=== PATIENT | female | born 1990 | race Caucasian/White ===

== ENCOUNTER 2020-03-31 15:18 | Outpatient (REF) | payer OTHER, SELFPAY | END 2020-03-31 15:19 | disposition home or self-care (01) | LOC: HO.LAB 15:18 | PROVIDERS: Visit Provider Internal Medicine | DX: Z13.89 Encounter for screening for other disorder (principal) ==

== ENCOUNTER 2020-04-13 08:48 | Outpatient (REF) | payer OTHER, SELFPAY ==
--- NOTE | 2020-04-13 09:00 | EMG_ITS ---
FINDINGS: Right median and ulnar motor studies were performed. Right radial sensory studies were performed, and paraspinal muscles were tested. IMPRESSION: [id number]-[id number] right median neuropathy across carpal tunnel. MD JACOB Lehman/NEAL / [phone]
--- NOTE | 2020-04-13 09:32 | XR_ITS ---
EXAMINATION: XR WRIST, RIGHT CLINICAL INFORMATION: Right wrist pain. Assess for arthritis. COMPARISON: Radiographs right wrist 02/16/2019. TECHNIQUE: The right wrist is imaged in 4 views. FINDINGS: There is no fracture, dislocation, destructive process. The ulnar variance is neutral. There is no joint narrowing or erosive change or chondrocalcinosis. The pronator quadratus fat pad appears normal. XR/XR wrist RT 2V IMPRESSION: Normal study.
== END 2020-04-13 08:49 | disposition home or self-care (01) ==
LOC: HO.NEURO 08:48
PROVIDERS: PCP Internal Medicine; Visit Provider Internal Medicine
DX: M25.531 Pain in right wrist (principal)
CPT/HCPCS: 73100; 95860; 95886; 95909

== ENCOUNTER 2020-05-30 15:27 | Outpatient (REF) | payer OTHER, SELFPAY ==
[2020-05-30 16:35] LABS: COVID-19 Test Negative (Negative)
== END 2020-05-30 15:28 | disposition home or self-care (01) ==
LOC: HO.EMPCOV 15:27
PROVIDERS: Visit Provider Internal Medicine
DX: Z20.828 Contact with and (suspected) exposure to other viral communicable diseases (principal)
CPT/HCPCS: 87635; C9803

== ENCOUNTER 2021-06-20 10:04 | Outpatient (REF) | payer OTHER, SELFPAY ==
[2021-06-20 14:03] LABS: CT PCR NOT DETECTED (Not Detect.); NG PCR NOT DETECTED (Not Detect.)
[2021-06-21 09:12] LABS: BV Int Neg Control Negative (Negative); BV Int Pos Control Positive (Positive)
[2021-06-23 16:31] LABS: HPV mRNA E6/E7 rflx Not Detected (Not Detected)
== END 2021-06-20 10:05 | disposition home or self-care (01) ==
LOC: HO.LAB 10:04
PROVIDERS: PCP Internal Medicine; Visit Provider Advanced Practice Midwife
DX: Z01.419 Encounter for gynecological examination (general) (routine) without abnormal findings (principal); N92.6 Irregular menstruation, unspecified; E66.01 Morbid (severe) obesity due to excess calories; Z68.43 Body mass index [BMI] 50.0-59.9, adult; Z87.42 Personal history of other diseases of the female genital tract; Z20.2 Contact with and (suspected) exposure to infections with a predominantly sexual mode of transmission
CPT/HCPCS: 87480; 87491; 87510; 87591; 87624; 87660; 88142

== ENCOUNTER → 2022-03-28 13:16 | Outpatient (RCR) | payer OTHER, SELFPAY ==
[2020-06-21 09:50] LABS: SARS-COV-2 PCR UMBRL NOT DETECTED
[2020-06-25 09:51] LABS: SARS-COV-2 PCR UMBRL NEGATIVE
[2020-06-30 11:07] LABS: SARS-COV-2 PCR UMBRL NEGATIVE
== END | disposition home or self-care (01) ==
LOC: HO.EMPCOV 06-14 14:26
PROVIDERS: Visit Provider Internal Medicine
DX: Z20.828 Contact with and (suspected) exposure to other viral communicable diseases (principal)
CPT/HCPCS: 36415; C9803; U0003

== ENCOUNTER 2022-06-28 10:08 | Outpatient (REF) | payer OTHER, SELFPAY ==
[2022-06-29 09:37] LABS: ~Hepatitis B Surface Antibody NONREACTIVE (Nonreactive)
[2022-06-30 23:05] LABS: TS Negative Control Passed; TS Panel A 2; TS Panel B 0; TS Positive Control Passed; TSpotTB Negative (Negative)
[2022-07-01 19:09] LABS: Rubella IgG Antibody 1.99 Index
[2022-07-02 00:03] LABS: Mumps Virus IgG Antibody 9.22 AU/mL
[2022-07-02 18:28] LABS: Varicella IgG Antibody <135.00 index
== END 2022-06-28 10:09 | disposition home or self-care (01) ==
LOC: HO.LAB 10:08
PROVIDERS: PCP Internal Medicine; Visit Provider Internal Medicine
DX: Z01.84 Encounter for antibody response examination (principal); Z11.1 Encounter for screening for respiratory tuberculosis
CPT/HCPCS: 36415; 86481; 86706; 86735; 86762; 86765; 86787

== ENCOUNTER 2022-07-26 09:00 | Outpatient (REF) | payer OTHER, SELFPAY ==
[2022-07-26 09:18] LABS: MANUAL DIFF FLAG NO
[2022-07-26 09:31] LABS: Basophils Absolute Auto 0.1 X10*3/uL (0.0-0.2); Basophils Percent Auto 0.7 % (0-2); Eosinophils Absolute Auto 0.4 X10*3/uL (0.0-0.4); Eosinophils Percent Auto 5.5 % (0-4); Hematocrit 40.7 % (37.0-47.0); Hemoglobin 13.5 g/dl (12.0-16.0); Imm Gran Abs Auto 0.02 X10*3/uL (0.00-0.03); Imm Gran Pct Auto 0.3 % (0.0-0.4); Lymphocytes Absolute Auto 2.3 X10*3/uL (1.2-4.9); Lymphocytes Percent Auto 31.9 % (20-40); Mean Corpuscular HGB Conc 33.2 g/dl (31.0-35.0); Mean Corpuscular Hemoglobin 28.7 pg (27.0-33.0); Mean Corpuscular Volume 86.4 fL (80.0-98.0); Mean Platelet Volume 9.7 fL (9.4-12.3); Monocytes Absolute Auto 0.4 X10*3/uL (0.1-1.2); Monocytes Percent Auto 5.9 % (2-11); Neutrophils Absolute Auto 4.1 x10*3/uL (2.0-8.3); Neutrophils Percent Auto 55.7 % (45-73); Platelet Count 288 X10*3/uL (160-400); Red Blood Count 4.71 X10*6/uL (4.20-5.50); Red Cell Distribution Width 12.8 % (11.0-16.0); White Blood Count 7.3 X10*3/uL (4.8-10.8)
[2022-07-26 10:32] LABS: Alanine Aminotransferase 32 U/L (0-31); Albumin Level 4.2 g/dL (3.5-5.0); Alkaline Phosphatase 54 U/L (39-117); Anion Gap 12 (12-20); Aspartate Amino Transferase 26 U/L (5-31); Blood Urea Nitrogen 11 mg/dL (9-16); Calcium 9.4 mg/dL (8.4-10.2); Carbon Dioxide 25 mmol/L (22-29); Chloride 107 mmol/L (96-108); Cholesterol 189 mg/dL; Estimated Glomerular Filt Rate > 60; Glucose Random 79 mg/dL (60-115); Sodium 139 mmol/L (135-145); Total Protein 6.8 g/dL (6.5-8.0)
[2022-07-26 10:52] LABS: Thyroid Stimulating Hormone 1.71 uIU/mL (0.32-4.0)
== END 2022-07-26 09:01 | disposition home or self-care (01) ==
LOC: HO.LAB 09:00
PROVIDERS: PCP Internal Medicine; Visit Provider Internal Medicine
DX: Z00.00 Encounter for general adult medical examination without abnormal findings (principal)
CPT/HCPCS: 36415; 80053; 82465; 84443; 85025

== ENCOUNTER 2022-10-15 14:12 | Outpatient (REF) | payer OTHER, SELFPAY ==
[2022-10-16 06:42] LABS: CT PCR NOT DETECTED (Not Detect.); NG PCR NOT DETECTED (Not Detect.)
[2022-10-16 12:36] LABS: BV Int Neg Control Negative (Negative); BV Int Pos Control Positive (Positive)
[2022-10-18 04:18] LABS: HPV mRNA E6/E7 rflx Not Detected (Not Detected)
== END 2022-10-15 14:13 | disposition home or self-care (01) ==
LOC: HO.LNP 14:12
PROVIDERS: PCP Internal Medicine; Visit Provider Advanced Practice Midwife
DX: Z01.419 Encounter for gynecological examination (general) (routine) without abnormal findings (principal); Z11.51 Encounter for screening for human papillomavirus (HPV); E66.01 Morbid (severe) obesity due to excess calories; Z87.42 Personal history of other diseases of the female genital tract
CPT/HCPCS: 0353U; 87480; 87510; 87624; 87660; 88142

== ENCOUNTER 2023-04-14 08:51 | Outpatient (AMB) | payer OTHER, SELFPAY ==
[2023-04-14 09:39] VITALS: BP 122/80; PULSE 83; TEMP 36.8; O2SAT 97; BMI 50.0
--- NOTE | 2023-04-14 09:39 | MHC.OFFWIV ---
Intake Vital Signs 04/14/23 09:39 Height 5 ft 3 in Weight 128.026 kg BMI 50.0 BP 122/80 Blood Pressure Location Rt brachial Position Sitting Pulse 83 Pulse Source Pulse Oximeter Temp 98.2 F Temp Source Temporal Artery Scan Pulse Oximetry (%) 97 Oxygen Delivery Method Room Air Intake Visit Reasons: EP, sore throat, fever ([phone]) Intake Note: pt is here for c/o sore throat and fever on and off Patient Tobacco Use Status: Never used Tobacco Allergies No Known Allergies [No Known Allergies*] Allergy (Verified 04/14/23 09:39) Do you need a note to return to daycare/school/sports/work: Yes HPI EP, sore throat, fever ([phone]) HPI Details Patient presents with 3 days of sore throat, mild conjunctivitis with watery eyes mild nasal congestion and chills. She reports evening she has chills and then wakes up sweating. No measured fevers. Notes children at Home are developing similar symptoms. Denies headache, body aches, GI symptoms, cough. [facility] Medical History (Updated 10/22/22 @ 10:33 by Alee Huynh CNM) Gall bladder disease Surgical History (Updated 10/15/22 @ 14:35 by JEFFY Estrada) Hx of cholecystectomy Family History Maternal Grandfather Cancer Social History Alcohol intake: never Patient Tobacco Use Status: Never used Tobacco Gender identity: Female Female Reproductive History Menstrual Age of Menarche: 11 Review of Systems Const Reports as per HPI and Reports no additional complaints Eyes Reports no additional complaints ENT Reports no additional complaints and Reports as per HPI Card Reports as per HPI and Reports no additional complaints Resp Reports as per HPI and Reports no additional complaints GI Reports as per HPI and Reports no additional complaints Musc Reports no additional complaints and Reports as per HPI Neuro Reports no additional complaints and Reports as per HPI Physical Exam Vital Signs: Last Vital Signs Temp 98.2 F 04/14/23 09:39 Pulse 83 04/14/23 09:39 BP 122/80 04/14/23 09:39 Pulse Ox 97 04/14/23 09:39 Oxygen Delivery Method Room Air 04/14/23 09:39 BMI result Body Mass Index 50.0 Const General: cooperative, comfortable and no acute distress Orientation/consciousness: patient oriented x3 HEENT Ears: TM's normal bilaterally General nose exam: Normal external nose present and Normal nasal mucous membranes and turbinates present Face and sinus: Yes normal facial exam and Yes sinuses nontender Mouth: Normal oral and palatal mucosa present Throat: Yes uvula midline and Yes posterior oropharynx abnormal (Tonsils are hypertrophic without rubor or abscess or exudate) Neck Neck: Yes full ROM and Yes no lymphadenopathy Resp Effort & Inspection: normal respiratory effort Auscultation: clear to auscultation bilaterally Cardio Rate: regular rate Rhythm: regular rhythm Heart sounds: S1 normal heart sound present and S2 normal heart sound present Neuro General: patient oriented x3 Results AMB Rapid Strep AMB Rapid Strep Negative Last Edit by Byron Hernandez CMA on 04/14/23 09:56 Results Reviewed Results Reviewed: Rapid strep negative Assessment & Plan Assessment & Plan (1) Pharyngitis: Code(s): J02.9 - Acute pharyngitis, unspecified Qualifiers: Pharyngitis/tonsillitis etiology: unspecified etiology Qualified Code(s): J02.9 - Acute pharyngitis, unspecified Plan: Advised patient on self-care for symptoms. Review viral swab collected today will report results as available. Return to clinic if symptoms do not improve over the next 5-7 days. Orders: Orders SARS-CoV2/FLU/RSV Today J02.9 - Acute pharyngitis, unspecified AMB Rapid Strep Screen Today Z13.9 - Encounter for screening, unspecified Coding Level of Care Code Est Pt Level 3 (28421) Diagnoses Pharyngitis, unspecified etiology J02.9 Pharyngitis/tonsillitis etiology: unspecified etiology
== END 2023-04-14 10:05 | disposition home or self-care (01) ==
PROVIDERS: PCP Internal Medicine; Visit Provider Physician Assistant
DX: Z13.9 Encounter for screening, unspecified (principal); J02.9 Acute pharyngitis, unspecified
CPT/HCPCS: 87880; 99213

== ENCOUNTER 2023-04-14 10:12 | Outpatient (REF) | payer OTHER, SELFPAY ==
[2023-04-14 14:58] LABS: Influenza A PCR NEGATIVE (Negative); Influenza B PCR NEGATIVE (Negative); Resp Syncy Virus RNA Qual PCR NEGATIVE (Negative); SARS COV2 PCR INHOUSE NEGATIVE (Negative)
== END 2023-04-14 10:13 | disposition home or self-care (01) ==
LOC: HO.LAB 10:12
PROVIDERS: Visit Provider Physician Assistant
DX: J02.9 Acute pharyngitis, unspecified (principal); Z11.52 Encounter for screening for COVID-19
CPT/HCPCS: 0241U

== ENCOUNTER 2023-04-17 14:23 | Outpatient (REF) | payer OTHER, SELFPAY ==
[2023-04-17 14:50] LABS: IDNOW Serial# 08D9AD1C; Strep A Nucleic Acid Positive (Negative)
== END 2023-04-17 14:24 | disposition home or self-care (01) ==
LOC: HO.LNP 14:23
PROVIDERS: Visit Provider Internal Medicine
DX: J02.9 Acute pharyngitis, unspecified (principal)
CPT/HCPCS: 87070; 87651

== ENCOUNTER 2023-07-29 15:47 | Outpatient (REF) | payer OTHER, SELFPAY ==
--- NOTE | ~2023-07-29 | XR_ITS ---
EXAMINATION: XR HIP, RIGHT CLINICAL INFORMATION: Right hip pain. COMPARISON: None available. TECHNIQUE: 2 views of the right hip. FINDINGS: Surgical clip overlies the pelvis. Right hip joint alignment preserved. Limited visualization due to body habitus. Mild degenerative changes in the right hip. XR/XR hip RT min 2V IMPRESSION: Mild degenerative changes in the right hip. CT scan should be considered for further evaluation if there is clinical concern for fracture or other underlying pathology.
== END 2023-07-29 15:48 | disposition home or self-care (01) ==
LOC: HO.XRAY 15:47
PROVIDERS: Visit Provider Internal Medicine
DX: M25.551 Pain in right hip (principal)
CPT/HCPCS: 73502

== ENCOUNTER 2023-08-13 09:17 | Outpatient (REF) | payer OTHER, SELFPAY ==
[2023-08-13 10:16] LABS: Basophils Percent Auto 0.6 % (0-2); Eosinophils Absolute Auto 0.2 X10*3/uL (0.0-0.4); Eosinophils Percent Auto 3.3 % (0-4); Hematocrit 37.9 % (37.0-47.0); Hemoglobin 12.6 g/dl (12.0-16.0); Imm Gran Abs Auto 0.01 X10*3/uL (0.00-0.03); Imm Gran Pct Auto 0.2 % (0.0-0.4); Lymphocytes Absolute Auto 1.9 X10*3/uL (1.2-4.9); Lymphocytes Percent Auto 34.7 % (20-40); Mean Corpuscular HGB Conc 33.2 g/dl (31.0-35.0); Mean Corpuscular Hemoglobin 28.7 pg (27.0-33.0); Mean Corpuscular Volume 86.3 fL (80.0-98.0); Monocytes Absolute Auto 0.2 X10*3/uL (0.1-1.2); Monocytes Percent Auto 4.5 % (2-11); Neutrophils Absolute Auto 3.1 x10*3/uL (2.0-8.3); Neutrophils Percent Auto 56.7 % (45-73); Red Blood Count 4.39 X10*6/uL (4.20-5.50); Red Cell Distribution Width 12.3 % (11.0-16.0)
[2023-08-13 10:22] LABS: White Blood Count 5.4 X10*3/uL (4.8-10.8)
[2023-08-13 10:58] LABS: Erythrocyte Sedimentation Rate 8 MM/HR (0-20)
[2023-08-13 11:00] LABS: Anion Gap 11 (12-20); Blood Urea Nitrogen 10 mg/dL (9-16); C Reactive Protein 0.19 mg/dL (< or = 0.50); Calcium 9.6 mg/dL (8.4-10.2); Carbon Dioxide 28 mmol/L (22-29); Chloride 105 mmol/L (96-108); Estimated Glomerular Filt Rate > 60; Glucose Random 78 mg/dL (60-115); Potassium 4.6 mmol/L (3.3-5.1); Sodium 139 mmol/L (135-145)
[2023-08-20 17:47] LABS: Anti Nuclear Antibody Screen NEGATIVE (NEGATIVE)
== END 2023-08-13 09:18 | disposition home or self-care (01) ==
LOC: HO.LAB 09:17
PROVIDERS: PCP Internal Medicine; Visit Provider Internal Medicine
DX: M25.50 Pain in unspecified joint (principal); Z82.61 Family history of arthritis
CPT/HCPCS: 36415; 80048; 85025; 85652; 86038; 86140

== ENCOUNTER → 2023-08-26 10:42 | Outpatient (REF) | payer OTHER, SELFPAY | LOC: HO.SL 10:42 | PROVIDERS: PCP Internal Medicine; Visit Provider Internal Medicine | DX: G47.33 Obstructive sleep apnea (adult) (pediatric) (principal) | CPT/HCPCS: 95806 ==

== ENCOUNTER → 2023-08-26 19:00 | Outpatient (BNV) | payer OTHER, SELFPAY | PROVIDERS: PCP Internal Medicine; Visit Provider Internal Medicine | DX: G47.33 Obstructive sleep apnea (adult) (pediatric) (principal) | CPT/HCPCS: 95806 ==

== ENCOUNTER 2023-11-07 10:36 | Outpatient (REF) | payer OTHER, SELFPAY ==
[2023-11-08 10:45] LABS: Bacterial Vaginosis PCR NEGATIVE (Negative); Candida Group PCR DETECTED (Not Detect); Candida glab krusei PCR NOT DETECTED (Not Detect); Trichomonas vaginalis PCR NOT DETECTED (Not Detect)
[2023-11-08 10:55] LABS: CT PCR NOT DETECTED (Not Detect.); NG PCR NOT DETECTED (Not Detect.)
== END 2023-11-07 10:37 | disposition home or self-care (01) ==
LOC: HO.LNP 10:36
PROVIDERS: PCP Internal Medicine; Visit Provider Advanced Practice Midwife
DX: Z01.419 Encounter for gynecological examination (general) (routine) without abnormal findings (principal); Z87.42 Personal history of other diseases of the female genital tract; Z78.9 Other specified health status; Z20.2 Contact with and (suspected) exposure to infections with a predominantly sexual mode of transmission
CPT/HCPCS: 0352U; 0353U; 99395

== ENCOUNTER 2023-11-07 10:36 | Outpatient (AMB) | payer OTHER, SELFPAY ==
[2023-11-07 10:37] VITALS: BP 132/82; BMI 51.4
--- NOTE | 2023-11-07 10:37 | A.OFFVIS_ITS ---
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: No Information Interpreted: non-clinical & clinical Golf Ball Marker: Golf Ball Marker Present (Olaf) Allergies No Known Allergies [No Known Allergies*] Allergy (Verified 11/07/23 10:39) Medication List - Last Reconciled 11/07/23 by Alee Huynh CNM albuterol sulfate 90 mcg/actuation (Ventolin HFA) inhalation fluticasone propionate 50 mcg/actuation 1 spray intranasal BID loratadine 10 mg PO DAILY Is last menstrual period known: Yes Last menstrual period: 11/01/23 Post menopausal: No HPI HPI 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 She is sexually active with her her had a vasectomy so she has not worried about . She has not worried about STDs these either but is open to testing with the pelvic exam. 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 She is working on trying to lose weight herself and not eat late when she gets home. She had considered bariatric surgery but really wants to try to lose the weight on she said she is seen her primary care provider but has not been tested for diabetes or had any fasting blood work and a very long time. [facility] Medical History Gall bladder disease Surgical History (Updated 11/07/23 @ 10:46 by JEFFY Estrada) History of loop electrical excision procedure (LEEP) Hx of cholecystectomy Family History Maternal Grandfather Cancer Social History (Updated 11/07/23 @ 10:41 by JEFFY Estrada) Alcohol intake: never Patient Tobacco Use Status: Never used Tobacco Substance Use Type: Marijuana Gender identity: Female Female Reproductive History Menstrual Age of Menarche: 11 Duration of menses: 3-5 days Date of last menstrual period: 11/01/23 control method: none Total pregnancies: 3 Full term: 2 Number of Living Children: 2 Ab spontaneous: 1 Date of last pap smear: 10/16/22 (negative) History of abnormal pap smear: Yes (2012 2011 CIN3 ) Physical Exam Vital Signs: Last Vital Signs BP 132/82 11/07/23 10:37 BMI result Body Mass Index 51.4 Const General: healthy appearing, comfortable, no acute distress, well developed and alert Nutritional Appearance: average body habitus and obese Orientation/consciousness: patient oriented x3 Limitations: no limitations HEENT Head: Yes normocephalic Neck Neck: Yes normal visual inspection Chest Chest palpation & inspection: normal inspection of the chest Breast/axilla inspection: normal inspection of the breasts and normal inspection of the axillae Breast/axilla palpation: normal palpation of the breasts and normal palpation of the axillae Resp Effort & Inspection: normal respiratory effort GI Inspection: Yes normal to inspection, No Abdominal wall edema and No distended Palpation (GI): Soft to palpation and nontender Other: Speculum exam within normal limits limited view of the cervix secondary to adipose but discharge is completely within normal limits. Cervix irregular status post LEEP tightly closed mobile nontender uterus difficult feel secondary to adipose slightly weak tone with Kegel. coached in Kegel's General: Yes bladder normal to palpation External Female Exam: normal external appearance and normal appearance of the urethra Speculum Exam - Vagina: normal appearance of the vagina, normal palpation and normal vaginal discharge Speculum Exam - Cervix: normal appearance of the cervix, normal palpation and nontender Bimanual exam- vagina & uterus: normal bimanual exam, normal palpation, uterine size normal, bladder normal to palpation, consistency normal, normal palpation, uterine mobility normal, uterine shape normal, No Cervical tenderness present, non-tender and no cervical motion tenderness Bimanual Exam- Adnexa, other: normal adnexae, no masses, normal and No adnexal tenderness Neuro General: patient oriented x3 Results Reviewed Results Reviewed: Name: Yecenia Aviles Age/Sex: 31/F Attending: Alee Huynh CNM : 1990 Submitted by: Alee Huynh CNM Copies to: KARLA RANKIN MD MR #: [id number] Status: DEP REF Collected: 06/20/21 Location: .LAB Received: 06/21/21 Interpretation Satisfactory for evaluation. Negative for intraepithelial lesion or malignancy. HPV mRNA E6/E7: NOT DETECTED This assay detects E6/E7 viral messenger RNA (mRNA) from 14 high-risk HPV types (16, 18, 31, 33, 35, 39, 45, 51, 52, 56, 58, 59, 66, 68) HPV testing performed by [facility], [place], [place]. See reference laboratory portion of the EMR for entire report. Clinical Information LMP: 05/31/21 Previous PAP test: 2016, WNL Other history: 2011, CASS III Material Received ThinPrep- Cervical Copies To KARLA RANKIN MD [address] [place] [address] [id number] Alee Huynh CNM [address] [place], [place] [address]D[place] [address] [address] Electronically Signed By: KRYSTAL Rubio (ASCP) 06/27/21 1704 Name: Yecenia Aviles Age/Sex: 32/F Attending: Alee Huynh CNM : 1990 Submitted by: Alee Huynh CNM Copies to: Jeremy Rankin MD MR #: [id number] Status: DEP REF Collected: 10/15/22 Location: [facility] Received: 10/16/22 Interpretation Satisfactory for evaluation. Negative for intraepithelial lesion or malignancy. HPV mRNA E6/E7: NOT DETECTED This assay detects E6/E7 viral messenger RNA (mRNA) from 14 high-risk HPV types (16, 18, 31, 33, 35, 39, 45, 51, 52, 56, 58, 59, 66, 68) HPV testing performed by [facility], [place], [place]. See reference laboratory portion of the EMR for entire report. Clinical Information LMP: 09/30/22 Previous PAP test: 06/21/21, WNL Material Received ThinPrep-Cervical Copies To Jeremy Rankin MD [address] [place] [address], [address] [place] [address] Electronically Signed By: Uzma Lima 10/21/22 1241 The Pap Test is a screening procedure with the inherent possibility of both false negative and false positive results. Results should be interpreted in the context of historic and current clinical findings. Reliability of the Pap Test is enhanced by performing the test on a regular repetitive basis. Patient: Yecenia Aviles Age/Sex: 32/F MR#: [id number] Page 1 of 1 Assessment & Plan Assessment & Plan (1) Obesity, morbid, BMI 50 or higher: Code(s): E66.01 - Morbid (severe) obesity due to excess calories Category: Medical (2) Hx of abnormal cervical Pap smear: Comment: 06/20/21- pap neg, neg HPV; 10/15/2022 Pap is negative with negative HPV. Code(s): Z87.42 - Personal history of other diseases of the female genital tract Category: Medical (3) Well woman exam with routine gynecological exam: Code(s): Z01.419 - Encounter for gynecological examination (general) (routine) without abnormal findings Category: Medical (4) Relies on partner's vasectomy for primary method of contraception: Code(s): Z78.9 - Other specified health status Category: Social Hx Plan -----Discussed in this visit the following: healthy balanced diet, regular and consistent exercise, getting recommended health screens, doing the best she can for her particular health concerns, kegel exercises, pap smear screening and followup recommendations, mammography screening and SBE, normal changes in cycles in her life stage--- . Reviewed that since the last 3 paps have been negative she would not be due for another Pap until at least 3 years from the last 1 and otherwise it would be 5 years but 3 years would be acceptable because of her history of the abnormal Paps in the past and a LEEP. I urged her to re contact her primary care provider and see if any fasting lab work is in order to screen for diabetes because she definitely would be at risk because of her obesity. 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 Discussed exercise and movement as well she had been having pain in her hips and was told that she might have the beginnings some arthritis discussed movement is been helpful as well and weight loss. RTC 1 year for annual her next Pap would be due in 2 years. Coding Level of Care Code Est Pt Prev Care 18-39y(41135) Diagnoses Obesity, morbid, BMI 50 or higher E66.01 Hx of abnormal cervical Pap smear Z87.42 Well woman exam with routine gynecological exam Z01.419 Relies on partner's vasectomy for primary method of contraception Z78.9
== END 2023-11-07 11:19 | disposition home or self-care (01) ==
LOC: HO.HWSM 10:36
PROVIDERS: PCP Internal Medicine; Visit Provider Advanced Practice Midwife
DX: Z01.419 Encounter for gynecological examination (general) (routine) without abnormal findings (principal); E66.01 Morbid (severe) obesity due to excess calories
CPT/HCPCS: 99395

== ENCOUNTER 2024-04-19 15:00 | Outpatient (AMB) | payer OTHER, SELFPAY ==
[2024-04-19 15:02] VITALS: BP 128/80; O2SAT 99
--- NOTE | 2024-04-19 15:02 | A.OFFVIS_ITS ---
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 The patient is a 34 year woman with known history of severe asthma. Apparently she has had asthma all throughout her life. Her son also has asthma. She also has significant al lergies. She did go to an machine gunner and she was found to have significant allergies. She was offered allergy shots but it was hard for her to accommodate specially with work. Therefore it was left at that. She does have a rescue inhaler. However, she is using the rescue inhaler 2 to 3 times a day. She was has a hard time. She is also using allergy medication. The patient also has chronic rhinitis but no evidence of any nasal polyps. And she does not significant eczema. She has never been hospitalized that she is aware of. Will go ahead and start on maintenance therapy. The patient may benefit from biologic therapy. Will request additional blood work if she is not better on the respiratory regimen with that will be provided. She will need pulmonary function studies. She had PFTs back in 2020 that I personally reviewed with her. She had evidence of small airways disease and a significant response to bronchodilators consistent with asthma. The patient also has daytime maki wsiness. Her [place] score is elevated 05/02. The patient did have a sleep study back in 08/27/2023 demonstrating [id number] sleep apnea with hypoxia. The patient needs to start CPAP at this time. [facility] Medical History (Updated 04/19/24 @ 22:53 by Percy Valdez MD) MICHOACANO (obstructive sleep apnea) Asthma Gall bladder disease Surgical History (Updated 11/07/23 @ 10:46 by JEFFY Estrada) History of loop electrical excision procedure (LEEP) Hx of cholecystectomy Family History Maternal Grandfather Cancer Social History (Updated 04/19/24 @ 15:08 by Jayshree Mendoza LPN) Alcohol intake: never Patient Tobacco Use Status: Never used Tobacco Substance Use Type: Marijuana Gender identity: Female Female Reproductive History Menstrual Age of Menarche: 11 Review of Systems Const Denies fever(s) ENT Reports nasal congestion and Reports nasal discharge Card Denies chest pain Resp Reports cough and Reports wheezing GI Reports no additional complaints Musc Reports no additional complaints Skin/Breast Denies rash Neuro Reports no additional complaints Sreekanth/Lymph Reports no additional complaints Aller/Immun Reports wheezing Physical Exam Vital Signs: Last Vital Signs BP 128/80 04/19/24 15:02 Pulse Ox 99 04/19/24 15:02 Oxygen Delivery Method Room Air 04/19/24 15:02 Const General: comfortable Neck Neck: Yes supple Chest Chest palpation & inspection: normal inspection of the chest Resp Effort & Inspection: normal respiratory effort and prolonged expiratory phase Auscultation: diminished lung sounds Cardio Heart sounds: S1 normal heart sound present and S2 normal heart sound present GI Palpation (GI): Soft to palpation Skin General skin exam: no rashes or lesions noted Extrem General: No clubbing, No cyanosis and Yes edema Office Procedures Flu Questionnaire Does the patient have a severe egg allergy?: No Does the patient have severe life threatening allergies?: No Does the patient have a fever or illness today?: No Has the patient ever had Guillain-[place] Syndrome?: No Has the patient ever had any past reaction to a flu shot?: No Immunizations Fluarix Triv [id number] (PF) 45 mcg (15 mcg x 3)/0.5 mL IM syringe Performing Provider: Percy Valdez MD Performing Location: [facility] Pulmonology Services Administered by: Percy Valdez MD on 04/19/24 16:39 Dose Route Admin Location Dispensed Lot Number Expiration Date NDC Mental Health Program Manager 0.5 mL IM Left Deltoid 0.5 mL [id number] 12/06/24 [id number] [employer] VIS Given Date VIS Provided VIS Publication Date 04/19/24 Single Vaccine 21 Eligibility Eligibility Date Funding Source Not [facility] Eligible 04/19/24 Private Assessment & Plan Assessment & Plan (1) Asthma: Code(s): J45.909 - Unspecified asthma, uncomplicated Category: Medical Qualifiers: Asthma severity: moderate Asthma persistence: persistent Asthma complication type: uncomplicated Qualified Code(s): J45.40 - Moderate persistent asthma, uncomplicated (2) MICHOACANO (obstructive sleep apnea): Code(s): G47.33 - Obstructive sleep apnea (adult) (pediatric) Category: Medical Plan Start APAP, Regional Patient needs a nebulizer Start Symbicort twice a day Start Singulair q.h.s. Continue short-acting beta agonist as needed Will need PFTs Consider biologic therapy. The patient is no better by the next visit will do additional blood work to see if she is a candidate. Antihistamines as needed Orders: Orders Influenza [id number] Immunization Today Z23 - Encounter for immunization PFT pulmonary function test Today J45.909 - Unspecified asthma, uncomplicated Medications: New budesonide-formoterol 160-4.5 mcg/actuation (Symbicort) 2 puffs inhalation BID 10.2 grams 11RF 30 days J44.89 - Other specified chronic obstructive pulmonary disease montelukast (Singulair) 10 mg PO BEDTIME 30 tabs 11RF 30 days J45.909 - Unspecified asthma, uncomplicated albuterol sulfate 2.5 mg (3 mL) inhalation Q6H PRN 90 mL 11RF shortness of breath or wheezing 30 days Coding Level of Care Code New Pt Level 4 (80871) Diagnoses Moderate persistent asthma without complication J45.40 Asthma severity: moderate Asthma persistence: persistent Asthma complication type: uncomplicated MICHOACANO (obstructive sleep apnea) G47.33 Time Spent (min) 40
== END 2024-04-19 15:47 | disposition home or self-care (01) ==
PROVIDERS: PCP Internal Medicine; Visit Provider Hospitalist
DX: J45.40 Moderate persistent asthma, uncomplicated (principal); G47.33 Obstructive sleep apnea (adult) (pediatric)
CPT/HCPCS: 99204

== ENCOUNTER → 2024-04-19 15:00 | Outpatient (BNVA) | payer OTHER, SELFPAY | PROVIDERS: PCP Internal Medicine; Visit Provider Hospitalist | DX: J45.40 Moderate persistent asthma, uncomplicated (principal); G47.33 Obstructive sleep apnea (adult) (pediatric); Z23 Encounter for immunization | CPT/HCPCS: 90471; 90656; 99202 ==

== ENCOUNTER 2024-05-03 13:48 | Outpatient (AMB) | payer OTHER, SELFPAY ==
--- NOTE | 2024-05-03 13:53 | MHC.OFFVIS ---
Vital Signs 05/03/24 13:54 Height 5 ft 3 in Weight 293 lb 3.437 oz BMI 51.9 BP 130/82 Blood Pressure Location Lt brachial Position Sitting Pulse 85 Pulse Source Pulse Oximeter Pulse Oximetry (%) 99 Oxygen Delivery Method Room Air Intake Visit Reasons: Cough /Asthma Facing Machine Operator Required: No Allergies No Known Allergies [No Known Allergies*] Allergy (Verified 05/03/24 13:58) HPI Comments Details: The patient is a 34 year woman with known history of severe asthma. Apparently she has had asthma all throughout her life. Her son also has asthma. She also has significant allergies. She did go to an failure analysis engineer and she was found to have significant allergies. She was offered allergy shots but it was hard for her to accommodate specially with work. Therefore it was left at that. She does have a rescue inhaler. However, she is using the rescue inhaler 2 to 3 times a day. She was has a hard time. She is also using allergy medication. The patient also has chronic rhinitis but no evidence of any nasal polyps. And she does not significant eczema. She has never been hospitalized that she is aware of. Will go ahead and start on maintenance therapy. The patient may benefit from biologic therapy. Will request additional blood work if she is not better on the respiratory regimen with that will be provided. She will need pulmonary function studies. She had PFTs back in 2020 that I personally reviewed with her. She had evidence of small airways disease and a significant response to bronchodilators consistent with asthma. The patient also has daytime drowsiness. Her Ira score is elevated 05/02. The patient did have a sleep study back in 08/27/2023 demonstrating [id number] sleep apnea with hypoxia. The patient needs to start CPAP at this time. 05/03/2024 the patient is here for sick visit. She started developing worsening cough the last 5 days. She has been noticing it has been worse at nighttime. It is a hacky cough nonproductive in nature. The patient has been exposed to sick contacts. Although she denies any fevers or chills. She has been using a nebulizer at times. She also is waiting to get set up with her CPAP. The CPAP therapy will be set up tomorrow. I did advise her to wait until her cough is better in this acute respiratory illness is resolved before starting her CPAP. Will go ahead and start her on some antibiotics. Her asthma seems to be stable based on the fact that her exam demonstrates no significant wheezing at this time. Therefore, she is going to start antibiotics and cough suppressants. If the patient is no better if she develops worsening asthma symptoms she will call so I can send some prednisone. [facility] Medical History (Updated 05/03/24 @ 20:18 by Percy Valdez MD) MICHOACANO (obstructive sleep apnea) Asthma Gall bladder disease Surgical History (Updated 11/07/23 @ 10:46 by JEFFY Estrada) History of loop electrical excision procedure (LEEP) Hx of cholecystectomy Family History Maternal Grandfather Cancer Social History Alcohol intake: never Patient Tobacco Use Status: Never used Tobacco Substance Use Type: Marijuana Gender identity: Female Female Reproductive History Menstrual Age of Menarche: 11 Review of Systems Const Denies fever(s) ENT Reports nasal congestion and Reports nasal discharge Card Denies chest pain Resp Reports cough and Reports wheezing GI Reports no additional complaints Musc Reports no additional complaints Skin/Breast Denies rash Neuro Reports no additional complaints Sreekanth/Lymph Reports no additional complaints Aller/Immun Reports wheezing Physical Exam Vital Signs: Last Vital Signs Pulse 85 05/03/24 13:54 BP 130/82 05/03/24 13:54 Pulse Ox 99 05/03/24 13:54 Oxygen Delivery Method Room Air 05/03/24 13:54 BMI result Body Mass Index 51.9 Const General: comfortable Neck Neck: Yes supple Chest Chest palpation & inspection: normal inspection of the chest Resp Effort & Inspection: normal respiratory effort Auscultation: diminished lung sounds Cardio Heart sounds: S1 normal heart sound present and S2 normal heart sound present GI Palpation (GI): Soft to palpation Skin General skin exam: no rashes or lesions noted Extrem General: No clubbing, No cyanosis and Yes edema Assessment & Plan Assessment & Plan (1) Asthma: Code(s): J45.909 - Unspecified asthma, uncomplicated Category: Medical Qualifiers: Asthma complication type: uncomplicated Asthma persistence: persistent Asthma severity: moderate Qualified Code(s): J45.40 - Moderate persistent asthma, uncomplicated (2) MICHOACANO (obstructive sleep apnea): Code(s): G47.33 - Obstructive sleep apnea (adult) (pediatric) Category: Medical (3) URI (upper respiratory infection): Code(s): J06.9 - Acute upper respiratory infection, unspecified Category: Medical Qualifiers: URI type: acute laryngotracheitis Qualified Code(s): J04.2 - Acute laryngotracheitis Plan Zpack cough medicine prednisone if worsens Start APAP once better, Regional Patient needs a nebulizer continue Symbicort twice a day continue Singulair q.h.s. Continue short-acting beta agonist as needed Will need PFTs Consider biologic therapy. The patient is no better by the next visit will do additional blood work to see if she is a candidate. Antihistamines as needed Medications: New benzonatate 200 mg PO BID PRN 60 caps 0RF cough 30 days codeine-guaifenesin 10-100 mg/5 mL 10 mL PO Q6H PRN 300 mL 0RF cough 10 days azithromycin 500 mg PO DAILY 5 tabs 0RF 5 days codeine-guaifenesin 10-100 mg/5 mL 10 mL PO Q6H PRN 300 mL 0RF cough 10 days Coding Level of Care Code Est Pt Level 4 (37282) Diagnoses Moderate persistent asthma without complication J45.40 Asthma complication type: uncomplicated Asthma persistence: persistent Asthma severity: moderate MICHOACANO (obstructive sleep apnea) G47.33 Acute laryngotracheitis J04.2 URI type: acute laryngotracheitis Time Spent (min) 16
[2024-05-03 13:54] VITALS: BP 130/82; PULSE 85; O2SAT 99; BMI 51.9
== END 2024-05-03 14:49 | disposition home or self-care (01) ==
PROVIDERS: PCP Internal Medicine; Visit Provider Hospitalist
DX: J45.40 Moderate persistent asthma, uncomplicated (principal); G47.33 Obstructive sleep apnea (adult) (pediatric); J04.2 Acute laryngotracheitis
CPT/HCPCS: 99214

== ENCOUNTER → 2024-05-03 13:48 | Outpatient (BNVA) | payer OTHER, SELFPAY | PROVIDERS: PCP Internal Medicine; Visit Provider Hospitalist | DX: J45.40 Moderate persistent asthma, uncomplicated (principal); G47.33 Obstructive sleep apnea (adult) (pediatric); J06.9 Acute upper respiratory infection, unspecified; J04.2 Acute laryngotracheitis | CPT/HCPCS: 99212 ==

== ENCOUNTER 2024-05-29 09:47 | Outpatient (REF) | payer OTHER, SELFPAY ==
--- NOTE | 2024-05-29 10:00 | PFT_ITS ---
Flows: FEV1: 99 % of predicted at 3.01 L FVC: 104 % of predicted at 3.77 L FEV1/FVC: 80 % Bronchodilator response: Absent Volumes: Total lung capacity: 102 % of predicted at 5.13 L Residual volume: 142 % of predicted at 1.66 L Slow vital capacity: 90 % of predicted at 3.47 L Expiratory reserve volume: 30 % of predicted at 0.37 L Diffusion capacity: Normal Impression: No obstructive or restrictive ventilatory defect. No bronchodilator response. Increased residual volume suggests air trapping. Decreased expiratory reserve volume suggests extrathoracic restriction likely secondary to abdominal obesity. MTDD
[2024-05-29 10:15] VITALS: PULSE 75; O2SAT 98
== END 2024-05-29 09:48 | disposition home or self-care (01) ==
LOC: HO.RESP 09:47
PROVIDERS: PCP Nurse Practitioner Family; Visit Provider Hospitalist
DX: J45.909 Unspecified asthma, uncomplicated (principal)
CPT/HCPCS: 94010; 94640; 94727; 94729

== ENCOUNTER 2024-06-08 16:33 | Emergency (ER) | payer OTHER, SELFPAY ==
--- NOTE | 2024-06-08 17:04 | ED.GENADULT ---
HPI - General Adult General Chief complaint: Animal Bite Stated complaint: Needs rabies shot Time Seen by Provider: 06/08/24 19:14 Source: patient and family Mode of arrival: ambulatory Limitations: no limitations History of Present Illness ED Provider: STEVE NOBLE narrative: 34 yo female with PMH of asthma took in stray cat cat did scratch whole family last saw cat one week ago - department of public health called them and said + rabies here for shots MD complaint: rabies exposure Onset (ago): week(s) (1) Severity: mild Relieving factors: none Exacerbating factors: none Associated symptoms: denies other symptoms Treatments prior to arrival: none Related Data Home Medications ?Medication ?Instructions ?Recorded ?Confirmed albuterol sulfate 90 mcg/actuation inhalation 11/07/23 04/19/24 aerosol inhaler (Ventolin HFA) fluticasone propionate 50 1 spray intranasal BID 11/07/23 04/19/24 mcg/actuation nasal spray,suspension loratadine 10 mg tablet 10 mg PO DAILY 11/07/23 04/19/24 Previous Rx's ?Medication ?Instructions ?Recorded albuterol sulfate 2.5 mg/3 mL 2.5 mg (3 mL) inhalation Q6H PRN 04/19/24 (0.083 %) solution for nebulization shortness of breath or wheezing 30 days #90 mL budesonide-formoterol HFA 160 2 puff inhalation BID 30 days 04/19/24 mcg-4.5 mcg/actuation aerosol #10.2 grams inhaler (Symbicort) montelukast 10 mg tablet 10 mg PO BEDTIME 30 days #30 tabs 04/19/24 (Singulair) azithromycin 500 mg tablet 500 mg PO DAILY 5 days #5 tabs 05/03/24 benzonatate 200 mg capsule 200 mg PO BID PRN cough 30 days 05/03/24 #60 caps codeine 10 mg-guaifenesin 100 mg/5 10 ml PO Q6H PRN cough 10 days 05/03/24 mL oral liquid #300 mL codeine 10 mg-guaifenesin 100 mg/5 10 ml PO Q6H PRN cough 10 days 05/03/24 mL oral liquid #300 mL Allergies Allergy/AdvReac Type Severity Reaction Status Date / Time No Known Allergies Allergy Verified 06/08/24 17:10 [No Known Allergies*] Review of Systems Review of Systems: Constitutional : No Fever, No Chills, Cardiovascular : No Chest Pain, No SOB Respiratory : No Dyspnea Gastrointestinal : No abdominal pain Musculoskeletal : No Joint Swelling Skin : No rash, positive skin laceration Neuro : No Weakness, No Numbness All other systems reviewed and are negative [facility] Past Medical History Attestation statement: The following information was validated with the patient. Source: old records reviewed Medical History MICHOACANO (obstructive sleep apnea) Asthma Gall bladder disease Surgical History History of loop electrical excision procedure (LEEP) Hx of cholecystectomy Family History Family History Maternal Grandfather Cancer Social History Social History Alcohol intake: never Patient Tobacco Use Status: Never used Tobacco Substance Use Type: Marijuana Advance Directives: No Advance Directives Information Provided: No Do you have a plan to hurt others: No Plan Gender identity: Female Physical Exam ED Vital Signs: Vital Signs - 24 hr 06/08/24 17:10 Temperature 97.8 F Pulse Rate 88 Respiratory Rate 18 Blood Pressure 169/101 H Pulse Oximetry 98 Oxygen Delivery Method Room Air BMI result Body Mass Index 52.5 Appearance: Alert. Oriented X3. No acute distress. Eyes: Pupils equal, round and reactive to light. ENT: Pharynx normal. Neck: Normal inspection. Neck supple. CVS: Normal heart rate and rhythm. Pulses normal. Respiratory: No respiratory distress. Breath sounds normal. Abdomen: Soft and nontender. Skin: Skin warm and dry. Normal skin color. Normal skin turgor. Extremities: No lower extremity edema. No calf ttp Neuro: Oriented X 3. No motor deficit. No sensory deficit. Course Course Course Narrative: This is a rapid medical exam performed by Major Roman NP: Additional HPI, ROS, PE not included below will be deferred to primary provider. Patient is a 34-year-old female presenting to the ED who reports they had rescued a stray cat on 05/27, scratched family members while there. Family ended up giving the cat to a family friend who took the cat to the vet, which ultimately tested positive for rabies. Mother received a call from the [facility] stating that the whole family needs rabies vaccine. States her Tdap is UTD. Medical Decision Making Medical Decision Making [facility] Narrative: 34 yo female with PMH of asthma here after stray cat was in house and scratched family - department of public health called family and told them cat has rabies get shots here for shots no prior hx of this. Differential Diagnosis Differential Diagnoses: The differential diagnosis associated with the presentation includes rabies exposure Independent Historian Clinical information obtained from an independent historian. History obtained from or confirmed by: Spouse External Record Review External record reviewed: Outpatient record Discharge Plan Discharge Clinical Impression: Rabies exposure Patient Disposition: Home, Self-Care Instructions: Rabies (ED), Rabies Immune Globulin (By injection), Rabies Vaccine (By injection) Additional Instructions: return for rash, swelling, difficulty breathing our infusion center will call and set up for next shots - if you do not hear by AM please call by 9am. Prescriptions: No Action loratadine 10 mg tablet 10 mg PO DAILY albuterol sulfate [Ventolin HFA] 90 mcg/actuation HFA aerosol inhaler inhalation fluticasone propionate 50 mcg/actuation spray,suspension 1 spray intranasal BID budesonide-formoterol [Symbicort] 160-4.5 mcg/actuation HFA aerosol inhaler 2 puff inhalation BID 30 Days Qty: 10.2 11RF montelukast [Singulair] 10 mg tablet 10 mg PO BEDTIME 30 Days Qty: 30 11RF albuterol sulfate 2.5 mg /3 mL (0.083 %) solution for nebulization 2.5 mg inhalation Q6H PRN (Reason: shortness of breath or wheezing) 30 Days Qty: 90 11RF azithromycin 500 mg tablet 500 mg PO DAILY 5 Days Qty: 5 0RF benzonatate 200 mg capsule 200 mg PO BID PRN (Reason: cough) 30 Days Qty: 60 0RF codeine-guaifenesin 10-100 mg/5 mL liquid 10 ml PO Q6H PRN (Reason: cough) 10 Days Qty: 300 0RF codeine-guaifenesin 10-100 mg/5 mL liquid 10 ml PO Q6H PRN (Reason: cough) 10 Days Qty: 300 0RF Print Language: Kinyarwanda
[2024-06-08 17:10] VITALS: BP 169/101; PULSE 88; RESP 18; TEMP 36.6; O2SAT 98; BMI 52.5
[2024-06-08] MEDS: Rabies Vaccine (PCEC)/PF 1 ML VIAL IM (20:30)
[2024-06-08] MEDS: Rabies Immune Globulin/PF 900 UNIT/3 ML VIAL 2688 UNIT IM (20:45)
[2024-06-08 21:01] VITALS: BP 169/101; PULSE 88; RESP 18; TEMP 36.6; O2SAT 98
== END 2024-06-08 21:01 | disposition home or self-care (01) ==
PROVIDERS: Emergency Provider Emergency Medicine; PCP Nurse Practitioner Family
DX: T14.8XXA Other injury of unspecified body region, initial encounter (principal); W55.03XA Scratched by cat, initial encounter; Y93.89 Activity, other specified; Y92.019 Unspecified place in single-family (private) house as the place of occurrence of the external cause; Y99.9 Unspecified external cause status; Z20.3 Contact with and (suspected) exposure to rabies; Z23 Encounter for immunization
CPT/HCPCS: 90375; 90471; 90675; 96372; 99282; 99284

== ENCOUNTER 2024-06-11 15:31 | Outpatient (AMB) | payer OTHER, SELFPAY ==
--- NOTE | 2024-06-11 15:36 | MHC.OFFVIS ---
Vital Signs 06/11/24 15:37 Height 5 ft 3 in Weight 293 lb 3.437 oz BMI 51.9 BP 122/86 Blood Pressure Location Rt radial Position Sitting Pulse 80 Pulse Source Pulse Oximeter Pulse Oximetry (%) 98 Oxygen Delivery Method Room Air Intake Visit Reasons: Asthma Android Software Engineer Required: No Allergies No Known Allergies [No Known Allergies*] Allergy (Verified 06/11/24 15:39) HPI Comments Details: The patient is a 34 year woman with known history of severe asthma. Apparently she has had asthma all throughout her life. Her son also has asthma. She also has significant allergies. She did go to an quality assurance tester and she was found to have significant allergies. She was offered allergy shots but it was hard for her to accommodate specially with work. Therefore it was left at that. She does have a rescue inhaler. However, she is using the rescue inhaler 2 to 3 times a day. She was has a hard time. She is also using allergy medication. The patient also has chronic rhinitis but no evidence of any nasal polyps. And she does not significant eczema. She has never been hospitalized that she is aware of. Will go ahead and start on maintenance therapy. The patient may benefit from biologic therapy. Will request additional blood work if she is not better on the respiratory regimen with that will be provided. She will need pulmonary function studies. She had PFTs back in 2020 that I personally reviewed with her. She had evidence of small airways disease and a significant response to bronchodilators consistent with asthma. The patient also has daytime drowsiness. Her Seneca score is elevated 24. The patient did have a sleep study back in 08/27/2023 demonstrating [id number] sleep apnea with hypoxia. The patient needs to start CPAP at this time. 05/03/2024 the patient is here for sick visit. She started developing worsening cough the last 5 days. She has been noticing it has been worse at nighttime. It is a hacky cough nonproductive in nature. The patient has been exposed to sick contacts. Although she denies any fevers or chills. She has been using a nebulizer at times. She also is waiting to get set up with her CPAP. The CPAP therapy will be set up tomorrow. I did advise her to wait until her cough is better in this acute respiratory illness is resolved before starting her CPAP. Will go ahead and start her on some antibiotics. Her asthma seems to be stable based on the fact that her exam demonstrates no significant wheezing at this time. Therefore, she is going to start antibiotics and cough suppressants. If the patient is no better if she develops worsening asthma symptoms she will call so I can send some prednisone. 06/11/2024 the patient is here for a pulmonary follow-up visit. Overall she is doing fair. She does complaint of increasing chest tightness. She thinks his related to the cold temperature of his related to the fact that she ended up getting a rabies vaccine that may have resulting in reaction.. She has been using the Symbicort. We did talk about adding a long-acting muscarinic antagonist provided the best bronchodilation. In the meantime she is also having issues with her sleep apnea. She does have an elevated Seneca score and she did get a new CPAP. She has been struggling to started specially since she has been having worsening breathing issues. I did encourage her to start the CPAP during the day and she needs make sure she uses for 4 hours make sure that isn't get taking away. When she gets used to it she can then transition to the nighttime. She will bring in the CPAP to the next visit. Hope that she can started that were 4 she can get the best benefit from it. She has not issues prior to that she will call. She is going to go ahead and start her new inhaler on top of her current therapy with the hope that we can provide better bronchodilation. The patient follow-up in 3-4 months. [facility] Medical History MICHOACANO (obstructive sleep apnea) Asthma Gall bladder disease Surgical History History of loop electrical excision procedure (LEEP) Hx of cholecystectomy Family History Maternal Grandfather Cancer Social History Alcohol intake: never Patient Tobacco Use Status: Never used Tobacco Substance Use Type: Marijuana Gender identity: Female Female Reproductive History Menstrual Age of Menarche: 11 Review of Systems Const Reports daytime sleepiness and Denies fever(s) ENT Reports nasal congestion and Reports nasal discharge Card Denies chest pain Resp Reports cough and Reports wheezing GI Reports no additional complaints Musc Reports no additional complaints Skin/Breast Denies rash Neuro Reports no additional complaints Sreekanth/Lymph Reports no additional complaints Aller/Immun Reports wheezing Physical Exam Vital Signs: Last Vital Signs Pulse 80 06/11/24 15:37 BP 122/86 06/11/24 15:37 Pulse Ox 98 06/11/24 15:37 Oxygen Delivery Method Room Air 06/11/24 15:37 BMI result Body Mass Index 51.9 Const General: comfortable Neck Neck: Yes supple Chest Chest palpation & inspection: normal inspection of the chest Resp Effort & Inspection: normal respiratory effort Auscultation: diminished lung sounds Cardio Heart sounds: S1 normal heart sound present and S2 normal heart sound present GI Palpation (GI): Soft to palpation Skin General skin exam: no rashes or lesions noted Extrem General: No clubbing, No cyanosis and Yes edema Assessment & Plan Assessment & Plan (1) Asthma: Code(s): J45.909 - Unspecified asthma, uncomplicated Category: Medical Qualifiers: Asthma complication type: uncomplicated Asthma persistence: persistent Asthma severity: moderate Qualified Code(s): J45.40 - Moderate persistent asthma, uncomplicated (2) MICHOACANO (obstructive sleep apnea): Code(s): G47.33 - Obstructive sleep apnea (adult) (pediatric) Category: Medical Plan Start APAP once better, Regional Patient needs a nebulizer continue Symbicort twice a day start Spiriva continue Singulair q.h.s. Continue short-acting beta agonist as needed Consider biologic therapy. The patient is no better by the next visit will do additional blood work to see if she is a candidate. Antihistamines as needed F/U 3-4 months Medications: New tiotropium bromide 2.5 mcg/actuation (Spiriva Respimat) 2 puffs inhalation DAILY 1 ea 11RF 30 days Changed From montelukast (Singulair) 10 mg PO BEDTIME 30 days 30 tabs 11RF J45.909 - Unspecified asthma, uncomplicated To montelukast (Singulair) 10 mg PO BEDTIME 90 tabs 3RF 90 days J45.909 - Unspecified asthma, uncomplicated From loratadine 10 mg PO DAILY To loratadine 10 mg PO DAILY 90 tabs 3RF 90 days Coding Level of Care Code Est Pt Level 4 (01721) Diagnoses Moderate persistent asthma without complication J45.40 Asthma complication type: uncomplicated Asthma persistence: persistent Asthma severity: moderate MICHOACANO (obstructive sleep apnea) G47.33 Time Spent (min) 16
[2024-06-11 15:37] VITALS: BP 122/86; PULSE 80; O2SAT 98; BMI 51.9
== END 2024-06-11 16:02 | disposition home or self-care (01) ==
PROVIDERS: PCP Internal Medicine; Visit Provider Hospitalist
DX: J45.40 Moderate persistent asthma, uncomplicated (principal); G47.33 Obstructive sleep apnea (adult) (pediatric)
CPT/HCPCS: 99214

== ENCOUNTER → 2024-06-11 15:31 | Outpatient (BNVA) | payer OTHER, SELFPAY | PROVIDERS: PCP Internal Medicine; Visit Provider Hospitalist | DX: J45.40 Moderate persistent asthma, uncomplicated (principal); G47.33 Obstructive sleep apnea (adult) (pediatric) | CPT/HCPCS: 99212 ==

== ENCOUNTER 2024-06-22 08:00 | Outpatient (RCR) | payer OTHER, SELFPAY ==
[2024-06-11 08:12] VITALS: BP 136/93; PULSE 91; RESP 14; TEMP 36.1; O2SAT 97
[2024-06-11] MEDS: Rabies Vaccine (PCEC)/PF 1 ML VIAL IM (08:15)
[2024-06-15 08:23] VITALS: BP 150/89; PULSE 78; RESP 16; TEMP 36.3; O2SAT 98
[2024-06-15] MEDS: Rabies Vaccine (PCEC)/PF 1 ML VIAL IM (08:28)
[2024-06-22 08:15] VITALS: BP 124/84; PULSE 76; RESP 14; TEMP 36.6; O2SAT 96
[2024-06-22] MEDS: Rabies Vaccine (PCEC)/PF 1 ML VIAL IM (08:17)
== END 2024-06-22 08:22 | disposition home or self-care (01) ==
LOC: HO.INF 08:00
PROVIDERS: Visit Provider Physician Assistant Medical
DX: Z20.3 Contact with and (suspected) exposure to rabies (principal)
CPT/HCPCS: 90471; 90675

== ENCOUNTER 2024-09-17 15:38 | Outpatient (AMB) | payer OTHER, SELFPAY ==
--- OUTSIDE RECORDS SUMMARY | 2024-09-17 15:41 | XMS_ITS | Clinical Summary ---
Author Organization [facility] ity Address [address] [place] [address] Care Team Providers Care Grid Inspector Name Role Phone Unavailable Primary Care Provider Unavailabl e Social History Tobacco Use Types Packs/Day Years Used Date Smoking Tobacco: Never Assessed Comments Unknown Sex and Gender Information Value Date Recorded Sex Assigned at Not on file Legal Sex Female 5:40 PM EST Gender Identity Not on file Sexual Orientation Not on file Plan of Treatment Health Maintenance Due Date Last Done Comments DTaP,Tdap,and Td Vaccines (1 - Tdap) 2010 Hepatitis B Vaccines (1 of 3 - 19+ 3-dose series) 2010 Cervical Cancer Screening: P ap Smear 01/12/2012 COVID-19 Vaccine ( - 2023-2 5 season) 2024 Influenza Vaccine (Season Ended) 2025 HIB Vaccines Aged Out No longer eligi ble based on patient's age to complete this topic HPV Vaccines Aged Out No longer eligi ble based on patient's age to complete this topic Hepatitis A Vaccines Aged Out No long er eligible based on patient's age to complete this topic IPV Vaccines Aged Out No longer eligi ble based on patient's age to complete this topic MMR Vaccines Aged Out No longer eligi ble based on patient's age to complete this topic Meningococcal ACWY Vaccine Aged Out N o longer eligible based on patient's age to complete this topic Meningococcal B Vaccine Aged Out No l onger eligible based on patient's age to complete this topic Pneumococcal Vaccine: Pediat rics (0 to 5 Years) and At-Risk Patients (6 to 64 Years) Aged Out No longer eligible b ased on patient's age to complete this topic RSV Immunization Patients Un jamia 20 months Aged Out No longer eligible b ased on patient's age to complete this topic Varicella Vaccines Aged Out No longer eligible based on patient's age to complete this topic
[2024-09-17 15:42] VITALS: BP 108/70; PULSE 77; O2SAT 99; BMI 52.9
--- NOTE | 2024-09-17 15:42 | MHC.OFFVIS ---
Vital Signs 09/17/24 15:42 Height 5 ft 3 in Weight 298 lb 11.622 oz BMI 52.9 BP 108/70 Blood Pressure Location Rt brachial Position Sitting Pulse 77 Pulse Source Pulse Oximeter Pulse Oximetry (%) 99 Oxygen Delivery Method Room Air Intake Visit Reasons: Asthma Allergies No Known Allergies [No Known Allergies*] Allergy (Verified 09/17/24 15:45) HPI Comments Details: The patient is a 34 year woman with known history of severe asthma. Apparently she has had asthma all throughout her life. Her son also has asthma. She also has significant allergies. She did go to an [place] administrative law judge and she was found to have significant allergies. She was offered allergy shots but it was hard for her to accommodate specially with work. Therefore it was left at that. She does have a rescue inhaler. However, she is using the rescue inhaler 2 to 3 times a day. She was has a hard time. She is also using allergy medication. The patient also has chronic rhinitis but no evidence of any nasal polyps. And she does not significant eczema. She has never been hospitalized that she is aware of. Will go ahead and start on maintenance therapy. The patient may benefit from biologic therapy. Will request additional blood work if she is not better on the respiratory regimen with that will be provided. She will need pulmonary function studies. She had PFTs back in 2020 that I personally reviewed with her. She had evidence of small airways disease and a significant response to bronchodilators consistent with asthma. The patient also has daytime drowsiness. Her [place] score is elevated 24. The patient did have a sleep study back in 08/27/2023 demonstrating [id number] sleep apnea with hypoxia. The patient needs to start CPAP at this time. 05/03/2024 the patient is here for sick visit. She started developing worsening cough the last 5 days. She has been noticing it has been worse at nighttime. It is a hacky cough nonproductive in nature. The patient has been exposed to sick contacts. Although she denies any fevers or chills. She has been using a nebulizer at times. She also is waiting to get set up with her CPAP. The CPAP therapy will be set up tomorrow. I did advise her to wait until her cough is better in this acute respiratory illness is resolved before starting her CPAP. Will go ahead and start her on some antibiotics. Her asthma seems to be stable based on the fact that her exam demonstrates no significant wheezing at this time. Therefore, she is going to start antibiotics and cough suppressants. If the patient is no better if she develops worsening asthma symptoms she will call so I can send some prednisone. 06/11/2024 the patient is here for a pulmonary follow-up visit. Overall she is doing fair. She does complaint of increasing chest tightness. She thinks his related to the cold temperature of his related to the fact that she ended up getting a rabies vaccine that may have resulting in reaction.. She has been using the Symbicort. We did talk about adding a long-acting muscarinic antagonist provided the best bronchodilation. In the meantime she is also having issues with her sleep apnea. She does have an elevated [place] score and she did get a new CPAP. She has been struggling to started specially since she has been having worsening breathing issues. I did encourage her to start the CPAP during the day and she needs make sure she uses for 4 hours make sure that isn't get taking away. When she gets used to it she can then transition to the nighttime. She will bring in the CPAP to the next visit. Hope that she can started that were 4 she can get the best benefit from it. She has not issues prior to that she will call. She is going to go ahead and start her new inhaler on top of her current therapy with the hope that we can provide better bronchodilation. The patient follow-up in 3-4 months. 09/17/2024 the patient is here for pulmonary follow-up visit. Overall the patient has been doing good. Denies any respiratory complaints. Asthma seems to be in better control. She does use her respiratory medicine as required. She has not required her rescue inhaler. In addition to that she has been using his CPAP. CPAP therapy has been affecting beneficial. He does use CPAP every night more than 4 hours a night. The therapy has been affecting beneficial. She does use nasal pillows. We did download the data. AHI is only 0.4 and she does not have any significant air leak. Overall doing well. No imaging studies for review. Will follow-up in a year's time if he has any issues prior to that he will call for an earlier assessment. [facility] Medical History MICHOACANO (obstructive sleep apnea) Asthma Gall bladder disease Surgical History History of loop electrical excision procedure (LEEP) Hx of cholecystectomy Family History Maternal Grandfather Cancer Social History Alcohol intake: never Patient Tobacco Use Status: Never used Tobacco Substance Use Type: Marijuana Gender identity: Female Female Reproductive History Menstrual Age of Menarche: 11 Review of Systems Const Denies fever(s) ENT Reports nasal congestion and Reports nasal discharge Card Denies chest pain Resp Reports cough and Reports wheezing GI Reports no additional complaints Musc Reports no additional complaints Skin/Breast Denies rash Neuro Reports no additional complaints Sreekanth/Lymph Reports no additional complaints Aller/Immun Reports wheezing Physical Exam Vital Signs: Last Vital Signs Pulse 77 09/17/24 15:42 BP 108/70 09/17/24 15:42 Pulse Ox 99 09/17/24 15:42 Oxygen Delivery Method Room Air 09/17/24 15:42 BMI result Body Mass Index 52.9 Const General: comfortable Neck Neck: Yes supple Chest Chest palpation & inspection: normal inspection of the chest Resp Effort & Inspection: normal respiratory effort Auscultation: clear to auscultation bilaterally Cardio Heart sounds: S1 normal heart sound present and S2 normal heart sound present GI Palpation (GI): Soft to palpation Skin General skin exam: no rashes or lesions noted Extrem General: No clubbing, No cyanosis and Yes edema Assessment & Plan Assessment & Plan (1) Asthma: Code(s): J45.909 - Unspecified asthma, uncomplicated Category: Medical Qualifiers: Asthma complication type: uncomplicated Asthma persistence: persistent Asthma severity: moderate Qualified Code(s): J45.40 - Moderate persistent asthma, uncomplicated (2) MICHOACANO (obstructive sleep apnea): Code(s): G47.33 - Obstructive sleep apnea (adult) (pediatric) Category: Medical Plan continue APAP, Regional continue Symbicort twice a day Spiriva continue Singulair q.h.s. Continue short-acting beta agonist as needed Consider biologic therapy if worsens Antihistamines as needed F/U 12 months Coding Level of Care Code Est Pt Level 4 (32184) Diagnoses Moderate persistent asthma without complication J45.40 Asthma complication type: uncomplicated Asthma persistence: persistent Asthma severity: moderate MICHOACANO (obstructive sleep apnea) G47.33 Time Spent (min) 16
== END 2024-09-17 16:02 | disposition home or self-care (01) ==
LOC: HO.HPS 15:39
PROVIDERS: PCP Internal Medicine; Visit Provider Hospitalist
DX: J45.40 Moderate persistent asthma, uncomplicated (principal); G47.33 Obstructive sleep apnea (adult) (pediatric)
CPT/HCPCS: 99214

== ENCOUNTER → 2024-09-17 15:38 | Outpatient (BNVA) | payer OTHER, SELFPAY | PROVIDERS: PCP Internal Medicine; Visit Provider Hospitalist | DX: J45.40 Moderate persistent asthma, uncomplicated (principal); G47.33 Obstructive sleep apnea (adult) (pediatric); Z99.89 Dependence on other enabling machines and devices | CPT/HCPCS: 99212 ==

== ENCOUNTER 2024-09-24 14:28 | Emergency (ER) | payer OTHER, SELFPAY ==
[2024-09-24 14:36] VITALS: BP 151/74; PULSE 85; RESP 18; TEMP 37.1; O2SAT 97; BMI 52.8
--- OUTSIDE RECORDS SUMMARY | 2024-09-24 15:00 | XMS_ITS | Clinical Summary ---
Author Organization [email or web address] Address [address] 7 [place] [address] Care Team Providers Care Patrol Police Sergeant Name Role Phone Unavailable Primary Care Provider Unavailabl e Immunizations Name Administration Dates Next Due Moderna Covid-19 Vaccine 12+ 10/18/2020,09/21/19 21 Moderna Covid-19 Vaccine 6+ Bivalent 09/02/2022 Social History Tobacco Use Types Packs/Day Years Used Date Smoking Tobacco: Never Assessed Comments Unknown Sex and Gender Information Value Date Recorded Sex Assigned at Female 09/02/2022 11:07 AM EDT Legal Sex Female 11:04 AM EDT Gender Identity Female 09/02/2022 11:07 AM EDT Sexual Orientation Straight 09/02/2022 11 :07 AM EDT Plan of Treatment Health Maintenance Due Date Last Done Comments Depression Screening 1991 HIV Screening 1991 SDOH Screening 1991 Alcohol/Substance Use Screening 2003 Tobacco Screening 2003 Family Planning (PISQ) 2006 Hepatitis C Screening 2009 DTaP/Tdap/Td Vaccines (1 - Tdap) 2010 Hepatitis B Vaccines (1 of 3 - 19+ 3-dose series) 2010 Pap Smear 01/12/2012 Cervical Cancer Screening 2021 HPV/Cotest 2021 COVID-19 Vaccine (2023-2 5 season) 2024 09/02/2022, 10/18/2020, 09/20/2020 Influenza Vaccine (#1) 2024 Zoster Vaccines (1 of 2) 2041 RSV Patients and Patients Aged 60 years or older (1 - 1-dose 75+ series) 2066 HIB Vaccines Aged Out No longer eligi [...] patient's age to complete this topic Meningococcal Vaccine Aged Out No barney eva eligible based on patient's age to complete this topic Pneumococcal Vaccine: Pediatrics (0 to 5 Years) and At-Risk Patients (6 to 49) Years) Aged Out No longer eligible b ased on patient's age to complete this topic RSV under 20 months Aged Out No longe r eligible based on patient's age to complete this topic Rotavirus Vaccines Aged Out No longer eligible based on patient's age to complete this topic Insurance [place] [address] [place] [address]
--- OUTSIDE RECORDS SUMMARY | 2024-09-24 15:00 | XMS_ITS | Clinical Summary ---
Author Organization [facility] Address [address] [place] [address] Care Team Providers Care 911 Emergency Dispatcher Name Role Phone Unavailable Primary Care Provider [...]
[2024-09-24] MEDS: Ketorolac Tromethamine 30 MG/ML VIAL IM (16:30)
[2024-09-24] MEDS: Gabapentin 300 MG CAPSULE PO (16:30)
--- NOTE | 2024-09-24 16:47 | ED_ITS ---
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 No midline or lower back pain in fact she complains of no back pain at all nor any recent injuries. No loss of bowel or bladder function or motor weakness. She did complain of a slight paresthesia to the right large toe but has been ambulating perfectly comfortably. Denies fever no IV drug use reported to me. Related Data Home Medications ?Medication ?Instructions ?Recorded ?Confirmed albuterol sulfate 90 mcg/actuation inhalation 11/07/23 04/19/24 aerosol inhaler (Ventolin HFA) fluticasone propionate 50 1 spray intranasal BID 11/07/23 04/19/24 mcg/actuation nasal spray,suspension Previous Rx's ?Medication ?Instructions ?Recorded albuterol sulfate 2.5 mg/3 mL 2.5 mg (3 mL) inhalation Q6H PRN 04/19/24 (0.083 %) solution for nebulization shortness of breath or wheezing 30 days #90 mL budesonide-formoterol HFA 160 2 puff inhalation BID 30 days 04/19/24 mcg-4.5 mcg/actuation aerosol #10.2 grams inhaler (Symbicort) benzonatate 200 mg capsule 200 mg PO BID PRN cough 30 days 05/03/24 #60 caps loratadine 10 mg tablet 10 mg PO DAILY 90 days #90 tabs 06/11/24 montelukast 10 mg tablet 10 mg PO BEDTIME 90 days #90 tabs 06/11/24 (Singulair) tiotropium bromide 2.5 2 puff inhalation DAILY 30 days #1 07/30/24 mcg/actuation mist for inhalation ea (Spiriva Respimat) gabapentin 100 mg capsule 100 mg PO TID PRN pain (scale 09/24/24 score 1-3) #14 caps methocarbamol 750 mg tablet 750 mg PO Q8H PRN pain (scale 09/24/24 score 7-10) 2 weeks #20 tabs Allergies Allergy/AdvReac Type Severity Reaction Status Date / Time No Known Allergies Allergy Verified 09/24/24 14:38 [No Known Allergies*] [facility] Past Medical History Medical History MICHOACANO (obstructive sleep apnea) Asthma Gall bladder disease Surgical History History of loop electrical excision procedure (LEEP) Hx of cholecystectomy Family History Family History Maternal Grandfather Cancer Social History Social History Alcohol intake: never Patient Tobacco Use Status: Never used Tobacco Substance Use Type: Marijuana Advance Directives: No Advance Directives Information Provided: Yes Do you have a plan to hurt others: No Plan Gender identity: Female Physical Exam ED Vital Signs: Vital Signs - 24 hr 09/24/24 14:36 09/24/24 17:12 Temperature 98.8 F 97.8 F Pulse Rate 85 71 Respiratory Rate 18 12 Blood Pressure 151/74 H 167/101 H Pulse Oximetry 97 99 Oxygen Delivery Method Room Air Room Air BMI result Body Mass Index 52.8 Const Other: EXAM: Gen: Alert, awake, well appearing, well hydrated. Head: Atraumatic Eyes: Anicteric, Normal conjunctiva. ENT: Moist mucosa, no pallor. ? Neck: Supple. Respiratory: Breathing comfortably, No distress.Clear to auscultation bilaterally, symmetric chest expansion, No wheeze, rales, ronchi. Cardiovascular: Regular rate and rhythm. No murmurs or rub. Well perfused periphery, warm extremities. No edema. ? Abdominal: Soft, no objective distension. No palpable masses or obvious organomegaly. No focal tenderness, no guarding, no rebound tenderness or other peritoneal findings. : No flank tenderness. Neuro: Alert. Gross movement of all extremities intact. ?Subjective paresthesia but intact sensation bilateral lateral thighs. 5/5 strength proximal and distal bilateral lower extremities no midline back tenderness Vital signs: See flowsheet Medications Administered Discontinued Medications Generic Name Dose Route Start Last Admin Trade Name Freq PRN Reason Stop Dose Admin Gabapentin 300 mg 09/24/24 16:08 09/24/24 16:30 Gabapentin 300 Mg Capsule PO 09/24/24 16:09 300 mg ONCE ONE Administration Ketorolac Tromethamine 30 mg 09/24/24 16:08 09/24/24 16:30 Ketorolac Tromethamine 30 Mg/Ml Vial IM 09/24/24 16:09 30 mg ONCE ONE Administration Methocarbamol 500 mg 09/24/24 16:08 09/24/24 17:13 Methocarbamol 500 Mg Tablet PO 09/24/24 16:09 500 mg ONCE ONE Administration Medical Decision Making Medical Decision Making MDM Narrative: 34-year-old female overweight with paresthesia bilateral thighs. Likely neuropathic type pain given no high-risk features, red flag signs or symptoms no indication for emergent MR imaging. At this may be piriformis syndrome or peripheral nerve compression/sciatica. She has a PCP appointment not until October 29 I have asked her to try to expedite this or follow up with our occupational health office. M*Modal nonopioid analgesia provided in the ED. Discharge Plan Discharge Clinical Impression: Sciatica, Paresthesia of both lower extremities Patient Disposition: Home, Self-Care Instructions: Paresthesia (ED) Additional Instructions: __ DISCHARGE DIAGNOSES: Possibly sciatica, bilateral lateral thigh paresthesias or neuropathic pain HISTORY OF PRESENTATION: ?Acute on chronic worsening right greater than left paresthesia of the lateral thighs EMERGENCY DEPARTMENT COURSE,TESTS, TREATMENTS: While in the ED today your examined and had no high risk or concerning features of your presentation to indicate an emergency MRI. You were given medications to try to mitigate the pain from what we suspect is neuropathic paresthesia DISCHARGE MEDICATIONS: We have prescribed you methocarbamol muscle relaxant and you should take [id number] NSAIDs such as ibuprofen or Tylenol every 6 hours try stretching and rotational exercises of your legs and hip flexors FOLLOW-UP: ?Call your primary or general physician soon as possible to discuss your symptoms, your ED visit and to discuss follow up plans Call your PCP to try to expedite follow up or call our Occupational Health to try to be seen by them INSTRUCTIONS ?& RETURN PRECAUTIONS: If any symptoms change first call your primary physician, if it is after-hours your primary doctors office should have a provider distribution center supervisor you can speak with. If the symptoms are severe or very concerning to you then call 911 or return to the ED. Return for severe worsening pain especially midline severe low back pain, high fevers, urinary or fecal incontinence, difficulty walking or other motor symptoms return immediately back to the emergency department James Walden MD Emergency Physician [facility] Prescriptions: New methocarbamol 750 mg tablet 750 mg PO Q8H PRN (Reason: pain (scale score 7-10)) 14 Days Qty: 20 0RF gabapentin 100 mg capsule 100 mg PO TID PRN (Reason: pain (scale score 1-3)) Qty: 14 0RF No Action Spiriva Respimat 2.5 mcg/actuation mist 2 puff inhalation DAILY 30 Days Qty: 1 11RF albuterol sulfate [Ventolin HFA] 90 mcg/actuation HFA aerosol inhaler inhalation fluticasone propionate 50 mcg/actuation spray,suspension 1 spray intranasal BID budesonide-formoterol [Symbicort] 160-4.5 mcg/actuation HFA aerosol inhaler 2 puff inhalation BID 30 Days Qty: 10.2 11RF albuterol sulfate 2.5 mg /3 mL (0.083 %) solution for nebulization 2.5 mg inhalation Q6H PRN (Reason: shortness of breath or wheezing) 30 Days Qty: 90 11RF loratadine 10 mg tablet 10 mg PO DAILY 90 Days Qty: 90 3RF montelukast [Singulair] 10 mg tablet 10 mg PO BEDTIME 90 Days Qty: 90 3RF benzonatate 200 mg capsule 200 mg PO BID PRN (Reason: cough) 30 Days Qty: 60 0RF Discharge Date/Time: 09/24/24 17:16 Print Language: Citizen [place]
[2024-09-24 17:12] VITALS: BP 167/101; PULSE 71; RESP 12; TEMP 36.6; O2SAT 99
[2024-09-24] MEDS: methocarbamoL 500 MG TABLET PO (17:13)
== END 2024-09-24 17:16 | disposition home or self-care (01) ==
PROVIDERS: Emergency Provider Emergency Medicine
DX: M54.31 Sciatica, right side (principal); M54.32 Sciatica, left side; R20.2 Paresthesia of skin; Z79.899 Other long term (current) drug therapy
CPT/HCPCS: 96372; 99283; 99284; J1885

== ENCOUNTER 2024-10-29 11:01 | Outpatient (AMB) | payer OTHER, SELFPAY ==
--- NOTE | 2024-10-29 11:02 | MHC.PC.OV ---
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 Is last menstrual period known: Yes Last menstrual period: 10/24/24 Post menopausal: No Patient : No Allergies No Known Allergies [No Known Allergies*] Allergy (Verified 10/29/24 11:45) Medication List - Last Reconciled 10/29/24 by En Engel CNP albuterol sulfate 90 mcg/actuation (Ventolin HFA) inhalation albuterol sulfate 2.5 mg (3 mL) inhalation Q6H PRN 30 days benzonatate 200 mg PO BID PRN 30 days fluticasone propionate 50 mcg/actuation 1 spray intranasal BID loratadine 10 mg PO DAILY 90 days montelukast (Singulair) 10 mg PO BEDTIME 90 days tiotropium bromide 2.5 mcg/actuation (Spiriva Respimat) 2 puffs inhalation DAILY 30 days Tobacco use date assessed: 10/29/24 Dental Screening Dental Screen Date: 10/29/24 Did you have a dental visit in the last 12 months?: Yes Did you have a dental problem in the last 6 months where you did not have access to dental care?: No Was dental information given to patient?: Patient has dentist HPI HPI Comments History of Present Illness Details 34-year-old female presents to establish care. Prior PCP? - Dr. Membreno, [facility] – [place] Last office visit/CPE/labs - 2 yeears ago Acute issue(s) - She reports telehealth numbness to the lateral aspect of both thighs, especially with sitting or lying down, for the past 2 months. She was recently evaluated at [facility] [place] ED and was prescribed methocarbamol 750 mg every 8 hours as needed and gabapentin 100 mg 3 times daily as needed without improvement. She denies pain to her back or hips. She denies fall, injury, or trauma. - Morbid obesity: She has been making healthy lifestyle choices. She requests with management with GLP 1. Denies history of pancreatitis or a personal or family history of medullary thyroid cancer or multiple endorcine neoplasia. She will inquire with [facility] [place] weight management regarding treatment options and will advise her PCP for referral as needed. Past Medical History - Asthma, morbid obesity, MICHOACANO on CPAP, myopia, and astigmatism (wears prescription glasses) Surgical History - LEEP, cholecystectomy Family History - Dad: DM, HTN - Mom: Asthma, DM, HTN - MGF: skin ancer - PGF: DM Social History - Nonsmoker. Does not vape. Does not drink alcohol. Denies recreational drug use - Has been making healthy dietary choices. Walks regularly. Generally sleep well Health maintenance - Last eye exam was 2 months ago with [facility]. She will sign a release for her PCP to obtain her ophthalmology record - Last dental visit was 6 months ago. She will can and schedule a follow up appointment - Last tetanus vaccine was in 09/02/2022 - She is up-to-date on the flu vaccine - Last pap smear test: 06/20/21- pap neg, neg HPV; 10/15/2022 Pap is negative with negative [facility] [place] pul[facility]ology [facility] Medical History MICHOACANO (obstructive sleep apnea) Asthma Gall bladder disease Surgical History History of loop electrical excision procedure (LEEP) Hx of cholecystectomy Family History (Updated 10/29/24 @ 11:16 by Mirna Finn MA) Maternal Grandfather Cancer Mother Asthma High blood pressure Diabetes Father High blood pressure Diabetes Paternal Grandfather Diabetes Social History Housing: Apartment Alcohol intake: never Patient Tobacco Use Status: Never used Tobacco e-Cigarette/Vaping Use: Never Used Second Hand Smoke Exposure: No Substance Use Type: Marijuana service: No Current occupational status: employed 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 1. Little interest or pleasure in doing things: not at all 2. Feeling down, depressed, or hopeless: several days 3. Trouble falling or staying asleep, or sleeping too much: several days 4. Feeling tired or having little energy: not at all 5. Poor appetite or overeating: not at all 6. Feeling bad about yourself - or that you are a failure or have let yourself or your family down: not at all 7. Trouble concentrating on things, such as reading the newspaper or watching television: not at all 8. Moving or speaking so slowly that other people could have noticed. Or the opposite - being so fidgety or restless that you have been moving around a lot more than usual: not at all 9. Thoughts that you would be better off or of hurting yourself in some way: not at all Total score: 2 Depression Screening Interpretation: Negative Depression Screening Done: Yes 79619 - PHQ-9 Billing: Yes Source: Developed by Drs. Gato Barajas, Tammi Parrish, Arnoldo Singh and colleagues, with an educational betty from [employer]. Thrive Questionnaire Date Thrive assessed: 10/29/24 I am a: Patient What is your living situation today?: I have a steady place to live Within the past 12 months, did the food you bought not last and you didn't have the money to get more?: Never true Within the past 12 months, did you worry whether your food would run out before you got money to buy more?: Never true Do you have trouble paying for medicines?: No Do you have trouble getting transportation to medical appointments?: No Do you have trouble paying your heating and electricity bill?: No Do you have trouble taking care of your child, family member or friend?: No Do you have trouble with day-to-day activities such as bathing, preparing meals, shopping, managing finances, etc.?: No Are you currently unemployed and looking for a job?: No Are you interested in more education?: No Please select the resources that you would like help with: None Currently or been in a relationship where the following occur: No concerns reported THRIVE Score: 0 AUDIT C Alcohol Use Questionnaire (AUDIT-C) 1. How often do you have a drink containing alcohol?: Never 3. How often do you have six or more drinks on one occasion?: Never Total Score: 0 Score Reviewed/Action Taken: Yes PURVI-7 AMB Questionnaire PURVI-7 Date PURVI - 7 assessed: 10/29/24 Feeling nervous, anxious, or on edge: 0 = Not at all Not being able to stop or control worryin = Not at all Worrying too much about different things: 0 = Not at all Trouble relaxin = Not at all Being so restless that it is hard to sit still: 1 = Several days Becoming easily annoyed or irritable: 0 = Not at all Feeling afraid as if something awful might happen: 0 = Not at all Total PURVI-7 score (0-4 normal; 5-9 mild; 10-14 moderate; 15-21 severe): 1 Source: Developed by Drs. Gato Barajas, Tammi Parrish, Arnoldo Singh and colleagues, with an educational betty from [employer]. PURVI-7 Assessment Billing PURVI-7 Assessment Tool: PURVI-7 Assessment 13895 ACT Questionnaire In the past 4 weeks, how much of the time did your asthma keep you from getting as much done at work, school or at home?: All of the time During the past 4 weeks, how often have you had shortness of breath?: 3-6 times a week During the past 4 weeks, how often did your asthma symptoms wake you up at night or earlier than usual in the morning?: Not at all During the past 4 weeks, how often have you had to use your rescue inhaler or nebulizer medication?: 2-3 times a week How would you rate your asthma control during the past 4 weeks?: Well controlled ACT Interpretation: Positive Score: 16 Review of Systems Const Details: Denies chills, Denies fatigue, Denies fever(s), Denies headache(s) and Denies weakness HEENT Denies change in vision, Denies dizziness, Denies headache(s), Denies hearing loss, Denies nasal congestion, Denies sinus pain, Denies sinus pressure and Denies sore throat Card Denies chest pain, Denies lightheadedness, Denies dyspnea and Denies other (palpitations) Resp Denies cough, Denies dyspnea and Denies wheezing GI Denies abdominal pain, Denies melena, Denies hematochezia, Denies change in bowel habits, Denies dyspepsia and Denies nausea Denies hematuria and Denies dysuria Musc Denies abnormal gait, Denies myalgias, Denies arthralgias, Reports numbness and Reports tingling Skin/Breast Denies rash, Denies unusual bruising and Denies wounds Neuro Denies abnormal gait, Denies dizziness, Denies headache(s), Denies memory loss, Reports numbness, Denies Sensory deficit (Neuro), Denies tingling and Denies weakness Psych Denies anxiety, Denies depression and Denies memory loss Endo Denies cold intolerance, Denies fatigue, Denies heat intolerance, Denies polydipsia and Denies polyuria Sreekanth/Lymph Denies easy bleeding and Denies easy bruising Aller/Immun Denies wheezing Physical exam (Primary Care) Vital Signs: Last Vital Signs Temp 97.7 F 10/29/24 11:09 Pulse 93 10/29/24 11:09 Resp 16 10/29/24 11:09 BP 130/63 10/29/24 11:09 Pulse Ox 98 10/29/24 11:09 Oxygen Delivery Method Room Air 10/29/24 11:09 BMI result Body Mass Index 53.5 Tobacco/Smoking Status: Tobacco use Status Tobacco use date assessed 10/29/24 10/29/24 11:13 Patient Tobacco Use Status Never used Tobacco 10/29/24 11:13 e-Cigarette/Vaping Use Never Used 10/29/24 11:13 PHQ-9: PHQ-9 Score PHQ-9: Total score 2 10/29/24 11:43 Depression Screening Interpretation: Negative Thrive Assessment: Date of Thrive Assessment Date Thrive assessed 10/29/24 10/29/24 11:13 Currently or been in a relationship where the following occur: No concerns reported Const Other: General: no acute distress, well developed, alert and awake Nutritional Appearance: well nourished Orientation/consciousness: patient oriented x3 HENMT Head: Yes normocephalic and Yes atraumatic Ears: hearing grossly normal bilaterally and TM's normal bilaterally General nose exam: Normal external nose present and Normal nares present Mouth: Normal oral and palatal mucosa present and moist mucous membranes Teeth and gingiva: dentition normal Throat: Yes oropharynx normal Eyes Pupils: Equal, round and reactive pupils present and Pupil accommodation reflex normal EOM: EOMs intact bilaterally Neck Neck: Yes normal visual inspection, Yes no lymphadenopathy and Yes trachea midline Thyroid: Thyroid normal Carotids: no bruits Lymphatic: no lymphadenopathy noted Chest Chest palpation & inspection: normal inspection of the chest Resp Effort & Inspection: normal respiratory effort Auscultation: clear to auscultation bilaterally Cardio Rate: regular rate Rhythm: regular rhythm Heart sounds: S1 normal heart sound present, S2 normal heart sound present, no gallops, no murmurs and no rubs Bruits: no abdominal aortic bruits and no carotid bruits GI Palpation (GI): No Abdominal aortic bruit present, Soft to palpation, nontender, No hepatosplenomegaly present and No Rebound tenderness present Auscultation: normal bowel sounds General: Yes no CVA tenderness Back/Spine/Pelvis Back: no CVA tenderness Cervical Spine: cervical ROM normal and No Cervical spine tenderness Thoracic/Lumbar Spine: thoraco-lumbar ROM normal, No pain with thoraco-lumbar ROM, No thoracic spinal tenderness and No lumbar spinal tenderness Skin General: warm and dry. Normal skin color. Normal skin turgor Lesions: no lesions Rashes: no rashes Trauma: no lacerations or abrasions Wounds: no wounds Nails: normal Neuro General: patient oriented x3, gait normal and CN's II-XI intact bilaterally Cranial nerves: Yes Equal, round and reactive pupils present Cognition (Neuro): normal cognition Gait exam (Neuro): Normal gait present Motor exam (neuro): 5/5 motor strength present throughout Sensory Exam: No Sensory deficit (Neuro) Deep tendon reflexes (DTR's): Right patellar reflex intensity grade: 2+ and Left patellar reflex intensity grade: 2+ Extrem General: Yes normal to inspection, No edema and No calf tenderness Psych Appearance: grossly normal Affect: normal affect Attitude: cooperative Thought process: Normal thought process present Coding Level of Care Code New Pt Level 4 (08932) New Pt Prev Care 18-39yr(01942 Diagnoses Normal physical examination, routine Z00.00 Paresthesia of both lower extremities R20.2 Moderate persistent asthma without complication J45.40 Asthma complication type: uncomplicated Asthma persistence: persistent Asthma severity: moderate Morbid obesity with BMI of 50.0-59.9, adult E66.01; Z68.43 MICHOACANO (obstructive sleep apnea) G47.33 Laboratory tests ordered as part of a complete physical exam (CPE) Z00.00 Additional Codes Asthma Control Questionnaire - ACT Interpretation: Positive ([id number]) PURVI-7 Assessment Billing - PURVI-7 Assessment Tool: PURVI-7 Assessment 16106 ([id number]) PHQ-9 - 26134 - PHQ-9 Billing: Yes ([id number]) Assessment & Plan Assessment & Plan (1) Normal physical examination, routine: Code(s): Z00.00 - Encounter for general adult medical examination without abnormal findings Category: Medical Plan: No significant functional limitation noted. Continue current treatment regimen. Perform lab work and follow-up for telehealth visit in 2-3 weeks for labs review and weight management. Return sooner with symptoms or concerns. Verbalized understanding and agreed with the plan. (2) Paresthesia of both lower extremities: Code(s): R20.2 - Paresthesia of skin Category: Medical Plan: She reports telehealth numbness to the lateral aspect of both thighs, especially with sitting or lying down, for the past 2 months. She was recently evaluated at [facility] [place] ED and was prescribed methocarbamol 750 mg every 8 hours as needed and gabapentin 100 mg 3 times daily as needed without improvement. She denies pain to her back or hips. She denies fall, injury, or trauma. No spine tenderness. No overt injury or trauma. Gabapentin 300 mg every night ordered; advised to take as prescribed. Instructed on the risks, benefits, and potential adverse reactions of the medication. Will check vitamin B12 and folate levels and will make changes as needed. Follow-up with worsening or new symptoms. Verbalized understanding and agreed with the plan. (3) Asthma: Code(s): J45.909 - Unspecified asthma, uncomplicated Category: Medical Qualifiers: Asthma complication type: uncomplicated Asthma persistence: persistent Asthma severity: moderate Qualified Code(s): J45.40 - Moderate persistent asthma, uncomplicated Plan: ACT score is 16, partially control asthma. Continue current treatment regimen. Followed by [facility] [place] pulmonology. Verbalized understanding and agreed with the plan. (4) Morbid obesity with BMI of 50.0-59.9, adult: Code(s): E66.01 - Morbid (severe) obesity due to excess calories; Z68.43 - Body mass index [BMI] 50.0-59.9, adult Category: Medical Plan: She currently weighs 302 lb, BMI is 53.5. She has been making healthy lifestyle choices. She requests with management with GLP 1. Denies history of pancreatitis or a personal or family history of medullary thyroid cancer or multiple endorcine neoplasia. She will inquire with [facility] [place] weight management regarding treatment options and will advise her PCP to make referrals as needed. Healthy diet and routine exercise encouraged. Semaglutide 0.25 mg every week ordered; advised to administered as prescribed. Instructed on the risks, benefits, and potential adverse reactions of the medication. Follow-up for a telehealth visit in 1 month. Return sooner with symptoms or concerns. Verbalized understanding and agreed with treatment plan. (5) MICHOACANO (obstructive sleep apnea): Code(s): G47.33 - Obstructive sleep apnea (adult) (pediatric) Category: Medical Plan: On CPAP. (6) Laboratory tests ordered as part of a complete physical exam (CPE): Code(s): Z00.00 - Encounter for general adult medical examination without abnormal findings Category: Medical Plan: Fasting labs ordered as part of a complete physical exam. Advised to fast for at least 10 hours before getting labs drawn. May drink water Verbalized understanding and agreed with treatment plan. Orders: Orders Complete Blood Count Auto Diff 10/29/24. - Encounter for general adult medical examination without abnormal findings Lipid Panel 10/29/24.00 - Encounter for general adult medical examination without abnormal findings Microalbumin, Random (w Creat) 10/29/24. - Encounter for general adult medical examination without abnormal findings UA CC w/rflx Micro + Cult 10/29/24 Z. - Encounter for general adult medical examination without abnormal findings Vitamin D 25-OH Total 10/29/24. - Encounter for general adult medical examination without abnormal findings Vitamin B12 and Folate 10/29/24 R20.2 - Paresthesia of skin Comprehensive [place]. Panel Fast 10/29/24 Z00. - Encounter for general adult medical examination without abnormal findings TSH reflex Free T4 10/29/24 Z. - Encounter for general adult medical examination without abnormal findings Medications: New gabapentin 300 mg PO BEDTIME 30 days 30 caps 0RF semaglutide (Ozempic) for 4 weeks 0.25 mg (0.368 mL) subcut QWEEK 4 weeks 1.472 mL 0RF
[2024-10-29 11:09] VITALS: BP 130/63; PULSE 93; RESP 16; TEMP 36.5; O2SAT 98; BMI 53.5
--- OUTSIDE RECORDS SUMMARY | 2024-10-29 11:09 | XMS_ITS | Clinical Summary ---
Author Organization [facility] ity Address [address] [place] [address] Care Team Providers Care Risk And Insurance Manager Name Role Phone Unavailable Primary Care Provider [...]
== END 2024-10-29 12:05 | disposition home or self-care (01) ==
LOC: HO.HMCFM 11:02
PROVIDERS: PCP Nurse Practitioner Family; Visit Provider Nurse Practitioner Family
DX: Z00.00 Encounter for general adult medical examination without abnormal findings (principal); R20.2 Paresthesia of skin; J45.40 Moderate persistent asthma, uncomplicated; E66.01 Morbid (severe) obesity due to excess calories; Z68.43 Body mass index [BMI] 50.0-59.9, adult; G47.33 Obstructive sleep apnea (adult) (pediatric)

== ENCOUNTER → 2024-10-29 11:01 | Outpatient (BNVA) | payer OTHER, SELFPAY | PROVIDERS: PCP Internal Medicine; Visit Provider Nurse Practitioner Family | DX: Z00.00 Encounter for general adult medical examination without abnormal findings (principal); R20.2 Paresthesia of skin; J45.40 Moderate persistent asthma, uncomplicated; E66.01 Morbid (severe) obesity due to excess calories; Z68.43 Body mass index [BMI] 50.0-59.9, adult; G47.33 Obstructive sleep apnea (adult) (pediatric); Z99.89 Dependence on other enabling machines and devices; Z13.30 Encounter for screening examination for mental health and behavioral disorders, unspecified | CPT/HCPCS: 96127; 96160; 99202; 99385 ==

== ENCOUNTER 2024-11-05 07:42 | Outpatient (REF) | payer OTHER, SELFPAY ==
--- OUTSIDE RECORDS SUMMARY | 2024-11-05 07:44 | XMS_ITS | Clinical Summary ---
Author Organization [facility] ity Address [address] [place] [address] Care Team Providers Care News Intern Name Role Phone Unavailable Primary Care Provider [...]
[2024-11-05 08:13] LABS: MANUAL DIFF FLAG NO
[2024-11-05 09:02] LABS: Basophils Absolute Auto 0.1 X10*3/uL (0.0-0.2); Basophils Percent Auto 0.7 % (0-2); Eosinophils Absolute Auto 0.3 X10*3/uL (0.0-0.4); Hematocrit 39.9 % (37.0-47.0); Hemoglobin 13.6 g/dl (12.0-16.0); Imm Gran Abs Auto 0.01 X10*3/uL (0.00-0.03); Imm Gran Pct Auto 0.1 % (0.0-0.4); Mean Corpuscular HGB Conc 34.1 g/dl (31.0-35.0); Mean Corpuscular Hemoglobin 29.1 pg (27.0-33.0); Mean Corpuscular Volume 85.4 fL (80.0-98.0); Mean Platelet Volume 9.6 fL (9.4-12.3); Monocytes Absolute Auto 0.4 X10*3/uL (0.1-1.2); Neutrophils Absolute Auto 4.2 x10*3/uL (2.0-8.3); Neutrophils Percent Auto 60.2 % (45-73); Platelet Count 314 X10*3/uL (160-400); Red Blood Count 4.67 X10*6/uL (4.20-5.50)
[2024-11-05 09:38] LABS: Alanine Aminotransferase 42 U/L (0-31); Albumin Level 4.4 g/dL (3.5-5.0); Alkaline Phosphatase 59 U/L (39-117); Anion Gap 13 (12-20); Aspartate Amino Transferase 32 U/L (5-31); Blood Urea Nitrogen 13 mg/dL (9-16); Calcium 9.6 mg/dL (8.4-10.2); Carbon Dioxide 26 mmol/L (22-29); Chloride 106 mmol/L (96-108); Cholesterol 201 mg/dL (<200); Estimated Glomerular Filt Rate > 60; Glucose Fasting 101 mg/dL (60-99); HDL Cholesterol 45 mg/dL (>40); LDL Cholesterol Calculated 137 mg/dL (<100); Potassium 4.2 mmol/L (3.3-5.1); Sodium 141 mmol/L (135-145); Total Protein 7.4 g/dL (6.5-8.0); Triglycerides 98 mg/dL (<150)
[2024-11-05 09:57] LABS: TSH reflex Free T4 1.75 uIU/mL (0.32-4.0); Vitamin D 25-OH Total 22.6 ng/mL (>30)
[2024-11-05 10:02] LABS: Folate 17.9 ng/mL (> or = 4.0); Vitamin B12 596 pg/mL (200-900)
[2024-11-05 11:47] LABS: Appearance Urine Clear; Color Urine Yellow; Glucose Urine UA Negative (Negative); Leukocyte Esterase Urine Negative (Negative); Nitrite Urine Negative (Negative); Urine Blood Negative (Negative); Urine Ketones Negative (Negative); Urine Protein Negative (Neg-Trace)
[2024-11-05 14:07] LABS: Microalbum/Creatinine Ratio Ur 9.3 ug/mg cr (<30)
== END 2024-11-05 07:43 | disposition home or self-care (01) ==
LOC: HO.LAB 07:42
PROVIDERS: PCP Nurse Practitioner Family; Visit Provider Nurse Practitioner Family
DX: Z00.00 Encounter for general adult medical examination without abnormal findings (principal); R20.2 Paresthesia of skin
CPT/HCPCS: 36415; 80053; 80061; 81003; 82043; 82306; 82570; 82607; 82746; 84443; 85025

== ENCOUNTER 2024-11-16 13:16 | Outpatient (AMB) | payer OTHER, SELFPAY ==
--- NOTE | 2024-11-16 13:12 | A.OFFPC_ITS ---
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 Entry Level Required: No Is last menstrual period known: Yes Last menstrual period: 11/02/24 Post menopausal: No Patient : No Allergies No Known Allergies [No Known Allergies*] Allergy (Verified 11/16/24 13:13) Tobacco use date assessed: 11/16/24 Dental Screening Dental Screen Date: 11/16/24 Did you have a dental visit in the last 12 months?: Yes Did you have a dental problem in the last 6 months where you did not have access to dental care?: No Was dental information given to patient?: Patient has dentist HPI HPI Comments History of Present Illness Details 34-year-old female [facility] and review of recent lab results. She admits to making healthy lifestyle changes. Ozempic was not approved by her health plan for weight management. She has an appointment with [facility] weight management later this month. She states that the numbness to her lower extremities worsened with taking gabapentin. She denies sharp pain or tingling. [facility] Medical History MICHOACANO (obstructive sleep apnea) Asthma Gall bladder disease Surgical History History of loop electrical excision procedure (LEEP) Hx of cholecystectomy Family History (Updated 10/29/24 @ 11:16 by Mirna Finn MA) Maternal Grandfather Cancer Mother Asthma High blood pressure Diabetes Father High blood pressure Diabetes Paternal Grandfather Diabetes Social History Housing: Apartment Alcohol intake: never Patient Tobacco Use Status: Never used Tobacco e-Cigarette/Vaping Use: Never Used Second Hand Smoke Exposure: No Substance Use Type: Marijuana Patient : No service: No Current occupational status: employed 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[place] Current occupational exposures/hazards: No Gender identity: Female Cognitive needs: No Hearing needs: No Vision needs: No Female Reproductive History Menstrual Age of Menarche: 11 Date of last menstrual period: 11/02/24 Questionnaire Thrive Questionnaire Date Thrive assessed: 10/22/24 I am a: Patient What is your living situation today?: I have a steady place to live Within the past 12 months, did the food you bought not last and you didn't have the money to get more?: Never true Within the past 12 months, did you worry whether your food would run out before you got money to buy more?: Never true Do you have trouble paying for medicines?: No Do you have trouble getting transportation to medical appointments?: No Do you have trouble paying your heating and electricity bill?: No Do you have trouble taking care of your child, family member or friend?: No Do you have trouble with day-to-day activities such as bathing, preparing meals, shopping, managing finances, etc.?: No Are you currently unemployed and looking for a job?: No Are you interested in more education?: No Please select the resources that you would like help with: None Currently or been in a relationship where the following occur: No concerns reported THRIVE Score: 0 PURVI-7 AMB Questionnaire PURVI-7 Date PURVI - 7 assessed: 10/29/24 Source: Developed by Drs. Gato Barajas, Tammi Parrish, Arnoldo Singh and colleagues, with an educational betty from [employer]. Review of Systems Const Details: Denies chills, Denies fatigue, Denies fever(s), Denies headache(s) and Denies weakness Cardiac Denies chest pain, Denies claudication, Denies leg edema, Denies lightheadedness, Denies palpitations, Denies dyspnea, Denies dyspnea on exertion, Denies orthopnea and Denies other (Loss of consciousness) Resp Denies cough, Denies excessive phlegm production, Denies dyspnea, Denies dyspnea on exertion, Denies snoring and Denies wheezing Musc Reports as per HPI Physical exam (Primary Care) Tobacco/Smoking Status: Tobacco use Status Tobacco use date assessed 11/16/24 11/16/24 13:16 Patient Tobacco Use Status Never used Tobacco 11/16/24 13:16 e-Cigarette/Vaping Use Never Used 11/16/24 13:16 Thrive Assessment: Date of Thrive Assessment Date Thrive assessed 10/22/24 11/16/24 13:16 Currently or been in a relationship where the following occur: No concerns reported Const Other: Patient is alert and oriented x3 Telehealth Telehealth Telehealth Platform: Telephone Location of provider rendering services: practice address Location of patient: address on file Patient Identification confirmed using: Name, : Yes Telehealth method: voice only Patient verbally consented to treatment: Yes Patient verbally consented to billing insurance company: Yes Patient informed of any privacy concerns related to visit: Yes Coding Level of Care Code Tele Est Pt Level 3 (72317) Diagnoses Morbid obesity with BMI of 50.0-59.9, adult E66.01; Z68.43 Elevated fasting glucose R73.01 Transaminitis R74.01 Hypercholesterolemia E78.00 Vitamin D deficiency E55.9 Paresthesia of both lower extremities R20.2 Time Spent (min) 20 Assessment & Plan Assessment & Plan (1) Morbid obesity with BMI of 50.0-59.9, adult: Code(s): E66.01 - Morbid (severe) obesity due to excess calories; Z68.43 - Body mass index [BMI] 50.0-59.9, adult Category: Medical Plan: She admits to making healthy lifestyle changes. Maura was not approved by her health plan for weight management. She has an appointment with [facility] weight management later this month. Healthy diet and routine exercise encouraged. Follow-up with weight management as planned. Return as needed. Verbalized understanding and agreed with the plan. (2) Elevated fasting glucose: Code(s): R73.01 - Impaired fasting glucose Category: Medical Plan: Recent fasting glucose is slightly elevated, 101. Healthy diet and routine exercise encouraged. Will recheck fasting glucose and make changes as needed. Verbalized understanding and agreed with the plan. (3) Transaminitis: Code(s): R74.01 - Elevation of levels of liver transaminase levels Category: Medical Plan: Recent AST and ALT levels are slightly elevated, 32 and 42 respectively. Likely fatty liver deposits. Weight loss/healthy diet, including low-fat and routine exercise encouraged. Will monitor liver panel periodically or if presents with related symptoms or concerns. Verbalized understanding and agreed with the plan. (4) Hypercholesterolemia: Code(s): E78.00 - Pure hypercholesterolemia, unspecified Category: Medical Plan: Recent total cholesterol and LDL levels are slightly elevated, 201 and 137 respectively. Advised to limit foods high in saturated fat and avoid foods high in trans fat. Routine exercise encouraged. Fast for 10-12 hours, may drink water, perform lipid panel blood work 2-3 days before next visit. Follow-up in 2 months. Verbalized understanding and agreed with the plan. (5) Vitamin D deficiency: Code(s): E55.9 - Vitamin D deficiency, unspecified Category: Medical Plan: Recent vitamin-D level is slightly low, 22.6. Vitamin D3 1000 units daily ordered; advised to take as prescribed. Inform that the sun is a good source of vitamin-D. Will recheck vitamin-D level in 2 months. Verbalized understanding and agreed with the plan. (6) Paresthesia of both lower extremities: Code(s): R20.2 - Paresthesia of skin Category: Medical Plan: She states that the numbness to her lower extremities worsened with taking gabapentin. She denies sharp pain or tingling. Advised to stop gabapentin. Weight loss encouraged. May take Tylenol or ibuprofen as needed. Follow-up with worsening or new symptoms. Verbalized understanding and agreed with the plan. Orders: Orders Vitamin D 25-OH Total 2 Months E55.9 - Vitamin D deficiency, unspecified Lipid Panel 2 Months E78.00 - Pure hypercholesterolemia, unspecified Medications: New 2 cholecalciferol (vitamin D3) 25 mcg PO DAILY 90 days 90 tabs 3RF Discontinued semaglutide (Ozempic) for 4 weeks Discontinued Reason: Insurance Denied 0.25 mg (0.368 mL) subcut QWEEK 4 weeks 1.472 mL 0RF
--- OUTSIDE RECORDS SUMMARY | 2024-11-16 15:40 | XMS_ITS | Clinical Summary ---
Author Organization [facility] ity Address [address] [place] [address] Care Team Providers Care Director Of Adult Epilepsy Name Role Phone Unavailable Primary Care Provider [...]
== END 2024-11-16 16:38 | disposition home or self-care (01) ==
LOC: HO.HMCFM 13:16
PROVIDERS: PCP Nurse Practitioner Family; Visit Provider Nurse Practitioner Family
DX: E66.01 Morbid (severe) obesity due to excess calories (principal); Z68.43 Body mass index [BMI] 50.0-59.9, adult; R73.01 Impaired fasting glucose; R74.01 Elevation of levels of liver transaminase levels; E78.00 Pure hypercholesterolemia, unspecified; E55.9 Vitamin D deficiency, unspecified; R20.2 Paresthesia of skin

== ENCOUNTER → 2024-11-16 13:16 | Outpatient (BNVA) | payer OTHER, SELFPAY | PROVIDERS: PCP Nurse Practitioner Family; Visit Provider Nurse Practitioner Family | DX: Z13.89 Encounter for screening for other disorder (principal) ==

== ENCOUNTER 2024-12-13 08:37 | Outpatient (AMB) | payer OTHER, SELFPAY ==
--- NOTE | 2024-12-13 08:45 | MHC.OFFVISWM ---
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 *SEE COMMENTS* Allergies No Known Allergies (No Known Allergies*) Allergy (Verified 12/13/24 10:10) Medication List - Last Reconciled 12/13/24 by Nicolas Granger MD albuterol sulfate 90 mcg/actuation (Ventolin HFA) inhalation albuterol sulfate 2.5 mg (3 mL) inhalation Q6H PRN 30 days budesonide-formoterol 160-4.5 mcg/actuation (Symbicort) 2 puffs inhalation BID 30 days cholecalciferol (vitamin D3) 25 mcg PO DAILY 90 days fluticasone propionate 50 mcg/actuation 1 spray intranasal BID gabapentin 300 mg PO BEDTIME 30 days loratadine 10 mg PO DAILY 90 days montelukast (Singulair) 10 mg PO BEDTIME 90 days phentermine 37.5 mg PO DAILY tiotropium bromide 2.5 mcg/actuation (Spiriva Respimat) 2 puffs inhalation DAILY 30 days HPI Comments Details: Previous weight loss efforts: self diet and exercise Wakes up: 5.30am, Sleeps: 10pm Breakfast: none Lunch: 12pm (Cafeteria food) Dinner: 7pm (rice, chicken, beans) Snacks: 4pm (chips) Exercise: none Beverages: Coffee: 1 cup/d with cream and sugar, tea: none, soda: diet soda, juice/ETOH: none PFSH Medical History MICHOACANO (obstructive sleep apnea) Asthma Gall bladder disease Surgical History History of loop electrical excision procedure (LEEP) Hx of cholecystectomy Family History Maternal Grandfather Cancer Mother Asthma High blood pressure Diabetes Father High blood pressure Diabetes Paternal Grandfather Diabetes Social History Housing: Apartment Alcohol intake: never Patient Tobacco Use Status: Never used Tobacco e-Cigarette/Vaping Use: Never Used Second Hand Smoke Exposure: No Substance Use Type: Marijuana service: No Current occupational status: employed 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[place] Current occupational exposures/hazards: No Gender identity: Female Cognitive needs: No Hearing needs: No Vision needs: No Female Reproductive History Menstrual Age of Menarche: 11 Physical Exam Vital Signs: Last Vital Signs Temp 97.4 F 12/13/24 08:56 Pulse 83 12/13/24 08:56 BP 136/61 12/13/24 08:56 Pulse Ox 98 12/13/24 08:56 Oxygen Delivery Method Room Air 12/13/24 08:56 BMI result Body Mass Index 53.3 GI Inspection: Yes normal to inspection (oid body habitus), Yes incision (well healed) and Yes obesity Palpation (GI): Soft to palpation Extrem Right lower extremity: normal to inspection Left lower extremity: normal to inspection Assessment & Plan Assessment & Plan (1) Morbid obesity with BMI of 50.0-59.9, adult: Code(s): E66.01 - Morbid (severe) obesity due to excess calories; Z68.43 - Body mass index [BMI] 50.0-59.9, adult Category: Medical Plan: 1.? Plan for lap sleeve gastrectomy. If diaphragmatic or ventral hernias are present at time of surgery, these will be repaired laparoscopically as well. I emphasized the importance of close follow-up, adherence to instructions and good communication. The surgery does not replace the need to change your lifestlyle which is the cause of the obesity problem. The surgery provides the motivation to try again to change your lifestyle, it reduces the appetite and make the transition to a better lifestyle easier and doubles the amount of weight you would lose compared to doing the lifestyle change without the surgery. You will need to be on a liquid diet with protein shakes for 2 weeks before surgery to maximize weight loss and boost your nutritional status to recover better from surgery and also for the first two weeks after surgery to let the stomach heal before we introduce other foods. After the first 2 weeks we will introduce protein bars and soft foods like scrambled eggs, cottage cheese and yogurt and after the 6th week will introduce meat, fish and cooked vegetables in small amounts. Over time you should be able to eat everything in small amounts. Side effects like nausea, vomiting, heartburn or abdominal pain are not common in the practice unless you are not following in the practice. This operation requires lifetime commitment to following in our practice and communication with me. You will much less weight and experience side effects if you don?t communicate or not following in the practice. Complications are rare and in our practice is about 1/10 of the national average. However, you can develop bleeding that may require transfusion (hasn?t happened for year in the practice), you may from complications (we did not have any deaths in the practice) and infections. Infections are usually a result of breakdown in communication or not understanding or following directions correctly. They are difficult to treat, they can happen during the first 6 weeks, they may require to be in the hospital for weeks or even months, not being able to eat by mouth and you may have drains and surgeries to try and correct the issue. Other risks and complications include possible conversion to an open procedure, leaks, small bowel obstruction, blood clots, cardiac, or pulmonary complications, as prison complications such as ulcers, insufficient weight loss and vitamin deficiencies. 2. You will receive a link of our software marixa to generate an individualized nutritional and exercise plan specific for you. Please send me a screenshot of the plans you will generate Meal to include lean meat (beef, fish, pork, turkey, chicken), or occitan yogurt, or egg whites, or beans with a salad with olive oil and fruits (berries, pears, apples, kiwi). Avoid salt, breads, potatoes, rice, pasta, desserts. ?3. If you choose shakes, each shake would be drunk slowly, like coffee in a period of 2 hours. ?4. If you choose bars, cut each bar in 4 pieces and eat each piece in 30min ?to make each bar last 2 hours. ?5. I emphasized the importance of measuring accurately the food portion and measure it when serving the food in plate ?6. The meal portions include a specific number of forks of meat and salad. You always eat the meat portion but you can replace up to half of salad/vegetables portion with rice, potatoes or pasta, or a fruit ?if you like. The less you do it the better weight loss will be. ?7. One full-size fork is what it can be scooped on the fork without falling aside and not what can be bit with the fork. Use regular forks like those you find in a typical restaurant. ?8.? Please buy the body composition scale we discussed and send me weight measurements as soon as possible and then once a week. Always include your diet and exercise plan. 9. The best choice would be to purchase a stationary bike, elliptical or treadmill at home that can track calories. Let me know if you do so I can give you an exercise plan. 9. The best exercise choice would be to use your treadmill at home that can track calories. You can create and exercise plan with the [employer] marixa. ?10.?It is important of avoiding and for at least 18 months postoperatively and has been discussed at the infosession. ?11. Goal is to lose at least 1.5-2lbs per week ?12. Goal to lose 10% of your weight before surgery, which is about 30lbs. Ultimate weight goal: 270lbs before surgery 13. Please follow the diet plan exactly without any change. If you don't like something about the plan or you feel hungry you need to communicate with me so I can help you revise the plan. You should not change the plan yourself. 14. To be scheduled for EGD to assess the stomach?s anatomy. The possibility of biopsies was discussed. Patient needs to avoid use of NSAIDs and aspirin for 1 week prior to EGD. You must be on liquids only the day before your endoscopy. Risks of perforation and bleeding was discussed with the patient. This will be an outpatient procedure with IV sedation. Orders: Orders H Pylori Breath Test Today E66.01 - Morbid (severe) obesity due to excess calories, Z68.43 - Body mass index [BMI] 50.0-59.9, adult Complete Blood Count Auto Diff Today E66.01 - Morbid (severe) obesity due to excess calories, Z68.43 - Body mass index [BMI] 50.0-59.9, adult Comprehensive Met. Panel Today E66.01 - Morbid (severe) obesity due to excess calories, Z68.43 - Body mass index [BMI] 50.0-59.9, adult Vitamin B12 and Folate Today E66.01 - Morbid (severe) obesity due to excess calories, Z68.43 - Body mass index [BMI] 50.0-59.9, adult Vitamin A Today E66.01 - Morbid (severe) obesity due to excess calories, Z68.43 - Body mass index [BMI] 50.0-59.9, adult Ferritin Today E66.01 - Morbid (severe) obesity due to excess calories, Z68.43 - Body mass index [BMI] 50.0-59.9, adult FL upper GI w air Today E66.01 - Morbid (severe) obesity due to excess calories, Z68.43 - Body mass index [BMI] 50.0-59.9, adult Insulin Today E66.01 - Morbid (severe) obesity due to excess calories, Z68.43 - Body mass index [BMI] 50.0-59.9, adult Hemoglobin A1c Today E66.01 - Morbid (severe) obesity due to excess calories, Z68.43 - Body mass index [BMI] 50.0-59.9, adult Lipid Panel Today E66.01 - Morbid (severe) obesity due to excess calories, Z68.43 - Body mass index [BMI] 50.0-59.9, adult IRON PROFILE Today E66.01 - Morbid (severe) obesity due to excess calories, Z68.43 - Body mass index [BMI] 50.0-59.9, adult Zinc Today E66.01 - Morbid (severe) obesity due to excess calories, Z68.43 - Body mass index [BMI] 50.0-59.9, adult C Reactive Protein Today E66.01 - Morbid (severe) obesity due to excess calories, Z68.43 - Body mass index [BMI] 50.0-59.9, adult Vitamin B1 Today E66.01 - Morbid (severe) obesity due to excess calories, Z68.43 - Body mass index [BMI] 50.0-59.9, adult TSH reflex Free T4 Today E66.01 - Morbid (severe) obesity due to excess calories, Z68.43 - Body mass index [BMI] 50.0-59.9, adult Vitamin D 25-OH Total Today E66.01 - Morbid (severe) obesity due to excess calories, Z68.43 - Body mass index [BMI] 50.0-59.9, adult US abdomen comp w elastography Today E66.01 - Morbid (severe) obesity due to excess calories, Z68.43 - Body mass index [BMI] 50.0-59.9, adult XR chest 2V Today E66.01 - Morbid (severe) obesity due to excess calories, Z68.43 - Body mass index [BMI] 50.0-59.9, adult ECG 12 lead EKG Today E66.01 - Morbid (severe) obesity due to excess calories, Z68.43 - Body mass index [BMI] 50.0-59.9, adult Referrals Nutrition/Dietitian Referral E66.01 - Morbid (severe) obesity due to excess calories, Z68.43 - Body mass index [BMI] 50.0-59.9, adult Behavioral Health Referral E66.01 - Morbid (severe) obesity due to excess calories, Z68.43 - Body mass index [BMI] 50.0-59.9, adult Medications: New phentermine Take daily at 11am in the morning 37.5 mg PO DAILY 30 caps 0RF E66.01 - Morbid (severe) obesity due to excess calories, Z68.43 - Body mass index [BMI] 50.0-59.9, adult
--- OUTSIDE RECORDS SUMMARY | 2024-12-13 08:47 | XMS_ITS | Clinical Summary ---
Author Organization [facility] ity Address [address] [place] [address] Care Team Providers Care Airline Radio Operator Name Role Phone Unavailable Primary Care Provider [...] - 2023-2 5 season) 2024 Influenza Vaccine (#1) 2025 HIB Vaccines Aged Out No longer [...]
--- OUTSIDE RECORDS SUMMARY | 2024-12-13 08:47 | XMS_ITS | Clinical Summary ---
Author Organization [employer] Address [address] [place] [address] [address] [place] [address] Care Team Providers Care Personal Injury Attorney Name Role Phone Unavailable Primary Care Provider Unavailabl e Immunizations Immunization Administration Dates Next Due Moderna Covid-19 Vaccine [...] 1991 HIV Screening 1991 SDOH Screening 1991 Disability Screening 1991 Alcohol/Substance Use Screening 2003 Tobacco Screening 2003 Family Planning (PISQ) 2006 Hepatitis C Screening 2009 DTaP/Tdap/Td Vaccines (1 - Tdap) 2010 Hepatitis B Vaccines (1 of 3 - 19+ 3-dose series) 2010 Pap Smear 01/12/2012 Cervical Cancer Screening 2021 HPV/Cotest 2021 COVID-19 Vaccine (4 - 2023-2 5 season) 2024 09/02/2022, 10/18/2020, 09/20/2020 Influenza Vaccine (#1) 2025 Zoster Vaccines (1 of 2) 2041 RSV [...] Years) and At-Risk Patients (6 to 49) Years Aged Out No longer eligible b ased on patient's age to complete this topic RSV under 20 months Aged Out No longe r eligible based on patient's age to complete this topic Rotavirus Vaccines Aged Out No longer eligible based on patient's age to complete this topic Insurance [address] [address] ACO
[2024-12-13 08:56] VITALS: BP 136/61; PULSE 83; TEMP 36.3; O2SAT 98; BMI 53.3
== END 2024-12-13 10:21 | disposition home or self-care (01) ==
LOC: HO.HBS 08:37
PROVIDERS: PCP Nurse Practitioner Family; Visit Provider Surgery
DX: E66.01 Morbid (severe) obesity due to excess calories (principal); Z68.43 Body mass index [BMI] 50.0-59.9, adult
CPT/HCPCS: 99204

== ENCOUNTER 2025-02-10 09:11 | Emergency (ER) | payer OTHER, SELFPAY ==
[2025-02-10 09:24] VITALS: BP 128/77; PULSE 82; RESP 16; TEMP 36.6; O2SAT 98; BMI 46.0
[2025-02-10 12:16] VITALS: BP 125/70; PULSE 73; RESP 16; TEMP 36.8; O2SAT 99
--- OUTSIDE RECORDS SUMMARY | 2025-02-10 12:49 | XMS_ITS | Clinical Summary ---
Author Organization [facility] Address [address] [place] [address] [address] [place] [address] Care Team Providers Care Sapphire Stylus Grinder Name Role Phone Unavailable Primary Care Provider [...] Tobacco Screening 2003 Family Planning (PISQ) 2006 HPV Vaccines (1 - 3-dose series) 2006 Hepatitis C Screening 2009 DTaP/Tdap/Td Vaccines (1 - Tdap) 2010 Hepatitis B Vaccines (1 of 3 - 19+ 3-dose series) 2010 Pap Smear 01/12/2012 Cervical Cancer Screening 2021 HPV/Cotest 2021 COVID-19 Vaccine (4 - 2024-2 6 season) 2025 09/02/2022, 10/18/2020, 09/20/2020 Influenza Vaccine (#1) 2025 [...] patient's age to complete this topic [place] [address] ACO
--- OUTSIDE RECORDS SUMMARY | 2025-02-10 12:49 | XMS_ITS | Clinical Summary ---
Author Organization [facility] ity Address [address] [place] [address] Care Team Providers Care Telegraph Messenger Name Role Phone Unavailable Primary Care Provider [...] Vaccine ( - 2023-2 5 season) 2024 Depression Screening 06/09/2024 Influenza Vaccine (#1) 2025 HIB Vaccines Aged [...] 5 Years) and At-Risk Patients (6 to 49 Years) Aged Out No longer eligible b ased on patient's age to complete this topic RSV Immunization Patients Un jamia 20 months Aged Out No longer eligible b ased on patient's age to complete this topic Varicella Vaccines Aged Out No longer eligible based on patient's age to complete this topic
--- NOTE | 2025-02-10 13:32 | ED_ITS ---
HPI - General Adult General Chief complaint: Back Pain/Injury Stated complaint: low back pain Time Seen by Provider: 02/10/25 13:31 Source: patient Mode of arrival: ambulatory Limitations: no limitations History of Present Illness ED Provider: Amanda Saldivar PA-C HPI narrative: Patient is a 35 year old assigned female at with a history of transaminitis, asthma, and MICHOACANO presenting to the emergency department today with lower back pain for 3 days. Patient states that the pain is located in the center of her lower back with radiation to her flanks and hips bilaterally with change in position and radiation to her legs bilaterally with walking. Patient reports associated numbness and paresthesias in her legs bilaterally with certain positions. Patient reports taking ibuprofen, gabapentin 300 mg, and a muscle relaxant she cannot remember the name of with minimal relief. Patient reports being evaluated in the emergency department for lateral leg tingling and numbness in September 2024, which she reports is different from the current lower back pain. Patient denies any unintentional weight loss, dizziness, lightheadedness, abdominal pain, nausea, vomiting, fever, chills, blurry vision, double vision, loss of vision, chest pain, difficulty breathing, shortness of breath, night sweats, pain with urination, increased urinary frequency, increased urinary urgency, blood in her urine or stool, recent trauma or falls, bowel incontinence, bladder incontinence, or any other complaints at this time. Onset (ago): day(s) (3 days) Location: back Radiation: back Related Data Home Medications ?Medication ?Instructions ?Recorded ?Confirmed albuterol sulfate 90 mcg/actuation inhalation 11/07/23 12/13/24 aerosol inhaler (Ventolin HFA) fluticasone propionate 50 1 spray intranasal BID 11/0612/13/24 mcg/actuation nasal spray,suspension Previous Rx's ?Medication ?Instructions ?Recorded albuterol sulfate 2.5 mg/3 mL 2.5 mg (3 mL) inhalation Q6H PRN 04/19/24 (0.083 %) solution for nebulization shortness of breat h or wheezing 30 days #90 mL loratadine 10 mg tablet 10 mg PO DAILY 90 days #90 t abs 06/11/24 montelukast 10 mg tablet 10 mg PO BEDTIME 90 days #90 tabs 06/11/24 (Singulair) gabapentin 300 mg capsule 300 mg PO BEDTIME 30 days #3 0 caps 10/29/24 cholecalciferol (vitamin D3) 25 25 mcg PO DAILY 90 day s #90 tabs 11/16/24 mcg (1,000 unit) tablet blood pressure kit-extra large #1 ea 12/20/24 phentermine 15 mg capsule 15 mg PO DAILY #90 caps 12/07 12/01 budesonide-formoterol HFA 160 2 puff inhalation BID 30 days 02/02/25 mcg-4.5 mcg/actuation aerosol #10.2 grams inhaler (Symbicort) tiotropium bromide 2.5 2 puff inhalation DAILY 30 d ays #1 02/04/25 mcg/actuation mist for inhalation ea (Spiriva Respimat) cyclobenzaprine 5 mg tablet 5 mg PO TID PRN low back p ain 7 02/10/25 days #21 tabs prednisone 20 mg tablet 20 mg PO DAILY 7 days #7 tab s 02/10/25 Allergies Allergy/AdvReac Type Severity Reaction Status Date / Time No Known Allergies (No Known Allergy Verified 02/10/25 09:28 Allergies*) Review of Systems Constitutional: Constitutional: Reports as per HPI Eyes: Eyes: Reports as per HPI ENT: Reports as per HPI Cardiovascular: Cardiovascular: Reports as per HPI Respiratory: Respiratory: Reports as per HPI Gastrointestinal: Gastrointestinal: Reports as per HPI Genitourinary: Genitourinary: Reports as per HPI Musculoskeletal: Musculoskeletal: Reports as per HPI Integumentary/Breasts: Skin/Breast: Reports as per HPI Neurologic: Reports as per HPI Psychiatric: Psychiatric: Reports as per HPI Endocrine: Endocrine: Reports as per HPI Hematologic/Lymphatic: Hematologic/Lymphatic: Reports as per HPI Allergic/Immunologic: Allergic/Immunologic: Reports as per HPI PMFSH Past Medical History Attestation statement: The following information was validated with the patient. Source: old records reviewed and nursing notes reviewed Medical History MICHOACANO (obstructive sleep apnea) Asthma Gall bladder disease Surgical History History of loop electrical excision procedure (LEEP) Hx of cholecystectomy Family History Family History Maternal Grandfather Cancer Mother Asthma High blood pressure Diabetes Father High blood pressure Diabetes Paternal Grandfather Diabetes Social History Social History Housing: Apartment Alcohol intake: never Patient Tobacco Use Status: Never used Tobacco Smoked in Last 30 Days: No e-Cigarette/Vaping Use: Never Used Second Hand Smoke Exposure: No Use of substances other than those prescribed or required for medical reasons: No Substance Use Type: Marijuana Advance Directives: No Advance Directives Information Provided: Yes service: No Current occupational status: employed Current [place] [employer] [place] Current occupational exposures/hazards: No Gender identity: Female Cognitive needs: No Hearing needs: No Vision needs: No Physical Exam ED Vital Signs: Vital Signs - 24 hr 02/10/25 09:24 02/10/25 12:16 02/10/25 14:12 Temperature 97.8 F 98.3 F 97.8 F Pulse Rate 82 73 54 Respiratory Rate 16 16 16 Blood Pressure 128/77 125/70 110/54 L Pulse Oximetry 98 99 99 Oxygen Delivery Method Room Air Room Air Room Air 02/10/25 15:12 Temperature 97.8 F Pulse Rate 54 Respiratory Rate 16 Blood Pressure 110/54 L Pulse Oximetry 99 Oxygen Delivery Method Room Air BMI result Body Mass Index 46.0 Const General: cooperative, no acute distress, alert and awake Nutritional Appearance: well nourished Orientation/consciousness: patient oriented x3 HENMT Head: Yes normal to inspection and Yes atraumatic Ears: hearing grossly normal bilaterally and external ears normal General nose exam: Normal external nose present, no nasal discharge noted and no epistaxis Face and sinus: Yes normal facial exam, No abrasion and No laceration Mouth: Normal oral and palatal mucosa present, no drooling and no muffled voice Eyes General: appearance normal, both eyes and all related structures Periorbital: periorbital findings normal Eyelids: Yes eyelids normal Conjunctivae: conjunctivae normal Pupils: Equal, round and reactive pupils present EOM: EOMs intact bilaterally Neck Neck: Yes normal visual inspection and Yes full ROM Resp Effort & Inspection: normal respiratory effort and able to speak in complete sentences Neuro General: patient oriented x3, moves all extremities and CN's II-XI intact bilaterally Cranial nerves: Yes Equal, round and reactive pupils present Cognition (Neuro): normal cognition Extrem General: Yes normal to inspection, Yes full ROM and Yes capillary refill normal Psych Appearance: grossly normal Mental Status: mental status grossly normal Affect: normal affect Attitude: cooperative Thought process: Normal thought process present Thought content: Normal thought content present Insight: Good insight present (Psych) Medications Administered Discontinued Medications Generic Name Dose Route Start Last Admin Trade Name Osmin PRN Reason Stop Dose Admin Diazepam 2 mg 02/10/25 14:00 02/10/25 14:16 Diazepam 2 Mg Tablet PO 02/10/25 14:01 2 mg ONCE ONE Administration Methylprednisolone Sodium Succinate 60 mg 02/10/25 14:00 02/10/25 14:16 Methylprednisolone Sod Succ 125 Mg/2 Ml Vial IM 02/10/25 14:01 60 mg ONCE ONE Administration Medical Decision Making Medical Decision Making [facility] Narrative: Patient is a 35 year old assigned female at with a history of transaminitis, asthma, and MICHOACANO presenting to the emergency department today with lower back pain for 3 days. Patient's physical exam was unremarkable. Patient was able to ambulate well and without assistance. Patient's clinical presentation is most consistent with acute low back pain and sciatica. I explained my physical exam findings to the patient. I answered all questions asked by the patient. Patient received valium and solu-medrol which, upon re- evaluation, she stated it helped her symptoms some. I stressed the importance of the patient taking her medication as directed (either prescribed or as the over the counter packaging recommends). I stressed the importance of the patient following up with her primary care provider and a environmental health specialist. I stressed the importance of the patient returning to the emergency department immediately if her symptoms were to worsen or if she were to develop any dizziness, shortness of breath, difficulty breathing, chest pain, blurry vision, loss of vision, nausea, vomiting, abdominal pain, fever, chills, back pain, or any other complaints. Patient verbalized agreement and understanding with this treatment plan and discharge. Differential Diagnosis Differential Diagnoses: The differential diagnosis associated with the presentation includes Low back pain Herniated disc Bulging disc Sciatica Admission/Observation Consideration of admission/observation: Escalation of care including admission/observation considered Patient would have been admitted to the hospital had her clinical presentation warranted hospital admission. Tests considered The following testing was considered but not selected: I considered obtaining a CT scan of the lumbar spine however, the patient's current clinical presentation does not warrant this. Prescription Management I considered prescription management with: Pain Medication (patient prescribed pain medication) Critical Care Time Critical Care Time Critical Care Time: Yes Total Critical Care Time: 34 Attestation: I spent 34 minutes of Critical Care Time with this patient. This does not include time spent on separately reported billable procedures. Discharge Plan Discharge Clinical Impression: Low back pain Patient Disposition: Home, Self-Care Instructions: Acute Low Back Pain (ED) Additional Instructions: IF you are prescribed home medications and/or you are taking over the counter medications at home - it is very important you continue to do so as prescribed / directed unless told otherwise. Follow up with your primary care provider. Return to the emergency department immediately if your symptoms worsen or if you develop any numbness, tingling, dizziness, shortness of breath, difficulty breathing, chest pain, blurry vision, loss of vision, nausea, vomiting, abdominal pain, fever, chills, back pain, or any other complaints. Please see the information below about our Patient Portal. If you are not yet enrolled in the [facility] Patient Portal, you will receive an enrollment email invitation following your visit to any [facility] [place] setting. You may also self-enroll in the Patient Portal by visiting our website: [email or web address] The following information is required to access the Patient Portal: - Your [facility] [place] - Your personal home email address (must match what is in your electronic medical record, Registration staff can assist with this) - Name - Date of Capabilities of the Patient Portal: - Message some providers - View upcoming appointments - Access your health summary, medical history, and visit history - View current conditions and allergies - View procedure and lab results - View your medications, including guidelines, side effects, and precautions - Complete pre-appointment questionnaires requested by your provider - Ready summary reports of your office visits and procedures To access the Patient Portal Mobile Dank, follow these directions: - Search [employer] in the Dank Store or Google Play Store - Download the Dank - Search for [facility] - Enter your login/password Prescriptions: New cyclobenzaprine 5 mg tablet 5 mg PO TID PRN (Reason: low back pain) 7 Days Qty: 21 0RF prednisone 20 mg tablet 20 mg PO DAILY 7 Days Qty: 7 0RF No Action (DME) blood pressure kit-extra large Kit See Rx Instructions .Route Qty: 1 0RF Rx Instructions: As directed phentermine 15 mg capsule 15 mg PO DAILY Qty: 90 0RF Rx Instructions: must administer 2 hours after breakfast budesonide-formoterol [Symbicort] 160-4.5 mcg/actuation HFA aerosol inhaler 2 puff inhalation BID 30 Days Qty: 10.2 11RF Spiriva Respimat 2.5 mcg/actuation mist 2 puff inhalation DAILY 30 Days Qty: 1 11RF albuterol sulfate [Ventolin HFA] 90 mcg/actuation HFA aerosol inhaler inhalation fluticasone propionate 50 mcg/actuation spray,suspension 1 spray intranasal BID albuterol sulfate 2.5 mg /3 mL (0.083 %) solution for nebulization 2.5 mg inhalation Q6H PRN (Reason: shortness of breath or wheezing) 30 Days Qty: 90 11RF loratadine 10 mg tablet 10 mg PO DAILY 90 Days Qty: 90 3RF montelukast [Singulair] 10 mg tablet 10 mg PO BEDTIME 90 Days Qty: 90 3RF cholecalciferol (vitamin D3) 25 mcg (1,000 unit) tablet 25 mcg PO DAILY 90 Days Qty: 90 3RF gabapentin 300 mg capsule 300 mg PO BEDTIME 30 Days Qty: 30 0RF Referrals: [facility] [place] [facility] [Provider Group, Neurosurgery] Referral Note: Call to establish and follow up with a environmental health specialist. En Engel CNP [Primary Care Provider, Internal Medicine] Stand Alone Forms: Work/School Release Interventions: ED Discharge Assessment Last Done: 02/10/25 15:12 Discharge Date/Time: 02/10/25 15:12 Print Language: Jordanian
[2025-02-10 14:12] VITALS: BP 110/54; PULSE 54; RESP 16; TEMP 36.6; O2SAT 99
[2025-02-10 15:12] VITALS: BP 110/54; PULSE 54; RESP 16; TEMP 36.6; O2SAT 99
== END 2025-02-10 15:12 | disposition home or self-care (01) ==
PROVIDERS: Emergency Provider Emergency Medicine; PCP Nurse Practitioner Family
DX: M54.50 Low back pain, unspecified (principal); M25.552 Pain in left hip; M25.551 Pain in right hip
CPT/HCPCS: 96372; 99284; J2919

== ENCOUNTER 2025-02-15 07:39 | Outpatient (REF) | payer OTHER, SELFPAY ==
--- OUTSIDE RECORDS SUMMARY | 2025-02-15 07:45 | XMS_ITS | Clinical Summary ---
Author Organization [employer] Address [address] [place] [address] [address] [place] [address] Care Team Providers Care Print Manager Name Role Phone Unavailable Primary Care [...] patient's age to complete this topic [place] [address] [address] [place] [address] ACO
--- OUTSIDE RECORDS SUMMARY | 2025-02-15 07:45 | XMS_ITS | Clinical Summary ---
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
[2025-02-15 07:55] LABS: MANUAL DIFF FLAG NO
[2025-02-15 08:50] LABS: Hematocrit 40.4 % (37.0-47.0); Hemoglobin 13.6 g/dl (12.0-16.0); Imm Gran Abs Auto 0.03 X10*3/uL (0.00-0.03); Imm Gran Pct Auto 0.3 % (0.0-0.4); Lymphocytes Absolute Auto 3.6 X10*3/uL (1.2-4.9); Mean Corpuscular HGB Conc 33.7 g/dl (31.0-35.0); Mean Corpuscular Hemoglobin 28.8 pg (27.0-33.0); Mean Corpuscular Volume 85.6 fL (80.0-98.0); NRBC Abs Auto 0.000 X10*3/uL (0.0-0.012); NRBC Pct Auto 0.0 /100WBC (0.0-0.2); Platelet Count 300 X10*3/uL (160-400); Red Blood Count 4.72 X10*6/uL (4.20-5.50); White Blood Count 9.7 X10*3/uL (4.8-10.8)
[2025-02-15 09:17] LABS: Alanine Aminotransferase 52 U/L (0-31); Albumin Level 4.4 g/dL (3.5-5.0); Alkaline Phosphatase 58 U/L (39-117); Anion Gap 12 (12-20); Aspartate Amino Transferase 34 U/L (5-31); Blood Urea Nitrogen 13 mg/dL (9-16); Calcium 8.8 mg/dL (8.4-10.2); Carbon Dioxide 26 mmol/L (22-29); Chloride 105 mmol/L (96-108); Cholesterol 196 mg/dL (<200); Estimated Glomerular Filt Rate > 60; HDL Cholesterol 45 mg/dL (>40); Iron 128 mcg/dL (30-160); Percent Iron Saturation 40 % (15-50); Potassium 3.6 mmol/L (3.3-5.1); Sodium 139 mmol/L (135-145); Total Iron Binding Capacity 321 mcg/dL (228-428); Total Protein 7.1 g/dL (6.5-8.0); Triglycerides 131 mg/dL (<150); Unsaturated Iron Binding 193 ug/dL
[2025-02-15 09:42] LABS: Ferritin 86 ng/mL (10-122)
[2025-02-15 09:47] LABS: Folate 7.0 ng/mL (> or = 4.0); Vitamin B12 658 pg/mL (200-900)
== END 2025-02-15 07:40 | disposition home or self-care (01) ==
LOC: HO.LAB 07:39
PROVIDERS: Absent Provider Nurse Practitioner Family; PCP Nurse Practitioner Family; Visit Provider Surgery
DX: M54.42 Lumbago with sciatica, left side (principal); M54.41 Lumbago with sciatica, right side; E78.00 Pure hypercholesterolemia, unspecified; E55.9 Vitamin D deficiency, unspecified; R74.01 Elevation of levels of liver transaminase levels; E66.01 Morbid (severe) obesity due to excess calories; Z68.42 Body mass index [BMI] 45.0-49.9, adult
CPT/HCPCS: 36415; 80053; 80061; 82306; 82607; 82728; 82746; 83036; 83525; 83540; 84425; 84443; 84590; 84630; 85025; 86140

== ENCOUNTER 2025-02-15 13:39 | Outpatient (AMB) | payer OTHER, SELFPAY ==
--- NOTE | 2025-02-15 13:48 | A.OFFPC_ITS ---
Vital Signs 02/15/25 13:51 Height 5 ft 7 in Weight 295 lb 6 oz BMI 46.3 BP 125/61 Blood Pressure Location Lt brachial Position Sitting Respiration 16 Pulse 91 Pulse Source Pulse Oximeter Temp 98.2 F Temp Source Oral Pulse Oximetry (%) 97 Oxygen Delivery Method Room Air Intake Visit Reasons[place] [facility] [place] [place] due to lower back pain Intake Note: patient here for ER folloe [place] [facility] [place] [place]- back pain Data Entry Operator Required: No Is last menstrual period known: Yes Last menstrual period: 12/30/24 Post menopausal: No Patient : No Allergies No Known Allergies (No Known Allergies*) Allergy (Verified 02/15/25 13:50) Tobacco use date assessed: 02/15/25 Dental Screening Dental Screen Date: 02/15/25 Did you have a dental visit in the last 12 months?: Yes Did you have a dental problem in the last 6 months where you did not have access to dental care?: No Was dental information given to patient?: Patient has dentist HPI HPI Comments History of Present Illness Details 35-year-old female presents for ED disch arge follow-up. She was evaluated and [place] [facility] [place] for low back pain. She was discharged home on prednisone and cyclobenzaprine which she has been taking as prescribed. She notes that the back pain started last Friday and was excruciating, made it impossible to climb up stairs. She notes that the pain is now less severe and intensifies with walking and bending down. She notes that the pain is localized pressure to her lower back with intermittent numbness to her toes. She notes that her job does not require heavy lifting. She denies fall, injury, or trauma. She was [place] [facility] [place] from [place] and was told to first follow up with her PCP and if her symptoms persist to follow up with them. [facility] Medical History MICHOACANO (obstructive sleep apnea) Asthma Gall bladder disease Surgical History History of loop electrical excision procedure (LEEP) Hx of cholecystectomy Family History Maternal Grandfather Cancer Mother Asthma High blood pressure Diabetes Father High blood pressure Diabetes Paternal Grandfather Diabetes Social History Housing: Apartment Alcohol intake: never Patient Tobacco Use Status: Never used Tobacco e-Cigarette/Vaping Use: Never Used Second Hand Smoke Exposure: No Substance Use Type: Marijuana service: No Current occupational status: employed 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[place] Current occupational exposures/hazards: No Gender identity: Female Cognitive needs: No Hearing needs: No Vision needs: No Female Reproductive History Menstrual Age of Menarche: 11 Date of last menstrual period: 12/30/24 Questionnaire Thrive Questionnaire Date Thrive assessed: 10/22/24 I am a: Patient What is your living situation today?: I have a steady place to live Within the past 12 months, did the food you bought not last and you didn't have the money to get more?: Never true Within the past 12 months, did you worry whether your food would run out before you got money to buy more?: Never true Do you have trouble paying for medicines?: No Do you have trouble getting transportation to medical appointments?: No Do you have trouble paying your heating and electricity bill?: No Do you have trouble taking care of your child, family member or friend?: No Do you have trouble with day-to-day activities such as bathing, preparing meals, shopping, managing finances, etc.?: No Are you currently unemployed and looking for a job?: No Are you interested in more education?: No Please select the resources that you would like help with: None Currently or been in a relationship where the following occur: No concerns reported THRIVE Score: 0 PURVI-7 AMB Questionnaire PURVI-7 Date PURVI - 7 assessed: 10/29/24 Source: Developed by Drs. Gato Barajas, Tammi Parrish, Arnoldo Singh and colleagues, with an educational betty from [employer]. Review of Systems Const Details: Const Denies chills, Denies fatigue, Denies fever(s), Denies headache(s) and Denies weakness ENT Denies dizziness and Denies headache(s) Card Denies chest pain, Denies lightheadedness, Denies dyspnea and Denies other (Palpitations) Resp Denies cough, Denies dyspnea, Denies wheezing and Denies other ( shortness of breath) GI Denies abdominal pain, Denies melena, Denies hematochezia, Denies change in bowel habits, Denies dyspepsia and Denies nausea Denies hematuria and Denies dysuria Musc Reports as per HPI Skin/Breast Denies rash, Denies unusual bruising and Denies wounds Neuro Denies abnormal gait, Denies dizziness, Denies headache(s), Denies memory loss, Denies numbness, Denies Sensory deficit (Neuro), Denies tingling and Denies weakness Psych Denies anxiety, Denies depression, Denies memory loss Endo Denies cold intolerance, Denies fatigue, Denies heat intolerance, Denies polydipsia and Denies polyuria Aller/Immun Denies wheezing Physical exam (Primary Care) Vital Signs: Last Vital Signs Temp 98.2 F 02/15/25 13:51 Pulse 91 02/15/25 13:51 Resp 16 02/15/25 13:51 BP 125/61 02/15/25 13:51 Pulse Ox 97 02/15/25 13:51 Oxygen Delivery Method Room Air 02/15/25 13:51 BMI result Body Mass Index 46.3 Tobacco/Smoking Status: Tobacco use Status Tobacco use date assessed 02/15/25 02/15/25 13:54 Patient Tobacco Use Status Never used Tobacco 02/15/25 13:54 e-Cigarette/Vaping Use Never Used 02/15/25 13:54 Thrive Assessment: Date of Thrive Assessment Date Thrive assessed 10/22/24 02/15/25 13:54 Currently or been in a relationship where the following occur: No concerns reported Const Other: General: no acute distress and well developed Nutritional Appearance: well nourished Orientation/consciousness: patient oriented x3 [facility] Head: Yes normocephalic and Yes atraumatic Eyes General: appearance normal, both eyes and all related structures Pupils: Equal, round and reactive pupils present EOM: EOMs intact bilaterally Resp Effort & Inspection: normal respiratory effort Auscultation: clear to auscultation bilaterally Cardio Rate: regular rate Rhythm: regular rhythm Heart sounds: S1 normal heart sound present, S2 normal heart sound present, no gallops, no murmurs and no rubs GI Palpation (GI): No Abdominal aortic bruit present, Soft to palpation, nontender, No hepatosplenomegaly present and No Rebound tenderness present Auscultation: normal bowel sounds General: Yes no CVA tenderness Back/Spine/Pelvis Back: no CVA tenderness Cervical Spine: cervical ROM normal and No Cervical spine tenderness Thoracic/Lumbar Spine: thoraco-lumbar ROM normal, No pain with thoraco-lumbar ROM, No thoracic spinal tenderness and positive lumbar spinal tenderness Extrem General: Yes normal to inspection, No edema and No calf tenderness Skin General: warm and dry. Normal skin color. Normal skin turgor Neuro General: patient oriented x3, gait normal and no focal neuro deficit Cranial nerves: Yes Equal, round and reactive pupils present Cognition (Neuro): normal cognition Gait exam (Neuro): Normal gait present Sensory Exam: No Sensory deficit (Neuro) Psych Appearance: grossly normal Affect: normal affect Attitude: cooperative Thought process: Normal thought process present Coding Level of Care Code Est Pt Level 4 (12570) Diagnoses Low back pain M54.42; M54.41 Back pain laterality: bilateral Chronicity: acute Sciatica laterality: bilateral sciatica Sciatica presence: with sciatica Hypercholesterolemia E78.00 Vitamin D deficiency E55.9 Transaminitis R74.01 Assessment & Plan Assessment & Plan (1) Low back pain: Code(s): M54.50 - Low back pain, unspecified Category: Medical Qualifiers: Back pain laterality: bilateral Chronicity: acute Sciatica laterality: bilateral sciatica Sciatica presence: with sciatica Qualified Code(s): M54.42 - Lumbago with sciatica, left side; M54.41 - Lumbago with sciatica, right side Plan: Lumbar tenderness to palpation. Continue current treatment regimen. May take ibuprofen 600-800 mg, with foods, as needed after completion of prednisone. Warm/cool compresses encouraged. Avoid heavy lifting or sports until healed. X-ray ordered. Follow-up with worsening or new symptoms. Verbalized understanding and agreed with the plan. (2) Hypercholesterolemia: Code(s): E78.00 - Pure hypercholesterolemia, unspecified Category: Medical Plan: Recent LDL is slightly elevated, 125. Triglyceride, total cholesterol, and LDL levels are normal. Advised to limit foods high in saturated fat and avoid foods high in trans fat. Routine exercise encouraged. Will monitor lipid panel periodically. Verbalized understanding and agreed with the plan. (3) Vitamin D deficiency: Code(s): E55.9 - Vitamin D deficiency, unspecified Category: Medical Plan: Recent vitamin-D level is low, 28.5, previous level was 22.6. Vitamin D3 increased to 50 mcg daily; advised to take as prescribed. Perform vitamin-D blood work a few days before next visit. Follow-up for a telehealth visit in 2 months. Verbalized understanding and agreed with the plan. (4) Transaminitis: Code(s): R74.01 - Elevation of levels of liver transaminase levels Category: Medical Plan: Recent AST and ALT are slightly elevated, 34 and 52 respectively. Asymptomatic. Healthy diet/weight management encouraged. Will monitor liver enzyme periodically or as needed. Verbalized understanding and agreed with the plan. Orders: Orders XR lumbar spine 2-3V Today M54.41 - Lumbago with sciatica, right side, M54.42 - Lumbago with sciatica, left side Vitamin D 25-OH Total 2 Months E55.9 - Vitamin D deficiency, unspecified Medications: New cholecalciferol (vitamin D3) 50 mcg PO DAILY 90 tabs 2RF 90 days Discontinued cholecalciferol (vitamin D3) Discontinued Reason: Doctor's Order 25 mcg PO DAILY 90 days 90 tabs 3RF
[2025-02-15 13:51] VITALS: BP 125/61; PULSE 91; RESP 16; TEMP 36.8; O2SAT 97; BMI 46.3
--- OUTSIDE RECORDS SUMMARY | 2025-02-15 16:09 | XMS_ITS | Clinical Summary ---
Author Organization [facility] ity Address [address] [place] [address] Care Team Providers Care Art Gallery Director Name Role Phone Unavailable Primary Care Provider [...]
--- OUTSIDE RECORDS SUMMARY | 2025-02-15 16:09 | XMS_ITS | Clinical Summary ---
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
== END 2025-02-15 14:10 | disposition home or self-care (01) ==
LOC: HO.HMCFM 13:40
PROVIDERS: PCP Nurse Practitioner Family; Visit Provider Nurse Practitioner Family
DX: M54.42 Lumbago with sciatica, left side (principal); M54.41 Lumbago with sciatica, right side; E78.00 Pure hypercholesterolemia, unspecified; E55.9 Vitamin D deficiency, unspecified; R74.01 Elevation of levels of liver transaminase levels

== ENCOUNTER 2025-02-17 07:34 | Outpatient (REF) | payer OTHER, SELFPAY ==
--- NOTE | ~2025-02-17 | XR_ITS ---
EXAMINATION: XR CHEST 2 VIEWS HISTORY: E66.01 - Morbid (severe) obesity due to excess calories COMPARISON: Comparison is made with the prior examination dated 02/16/2019. FINDINGS: PA and lateral views of the chest are submitted. The lungs are expanded and clear. There is no pleural effusion, pneumothorax, or pulmonary vascular congestion. The heart is normal in size. The bones are intact. XR/XR chest 2V IMPRESSION: No acute cardiopulmonary abnormality. Electronically signed by: Gato Bell MD 02/17/2025 08:09 AM EDT
--- NOTE | ~2025-02-17 | XR_ITS ---
EXAMINATION: XR LUMBOSACRAL SPINE CLINICAL INFORMATION: M54.42 - Lumbago with sciatica, left side COMPARISON: None available. TECHNIQUE: AP and lateral views FINDINGS: Dextroconvex curvature apex at L3. Marginal osteophyte formation and endplate sclerosis at L3-4, T12-L1 and L1-2 levels. No acute cortical disruption or malalignment. Spina bifida occulta S1. Vascular clips in the right upper quadrant abdomen. There is a 5 cm tubular calcification in the right hemiabdomen just inferior to the right 12th rib not seen on the lateral projection.. XR/XR lumbar spine 2-3V IMPRESSION: Dextroconvex scoliosis and multilevel spondylosis without acute fracture or listhesis. 5 cm tubular shaped calcification right hemiabdomen unclear exact location and etiology. Probable cholecystectomy.. Electronically signed by: Berry Chung MD 02/17/2025 08:19 AM EDT
--- OUTSIDE RECORDS SUMMARY | 2025-02-17 07:37 | XMS_ITS | Clinical Summary ---
Author Organization [facility] ity Address [address] [place] [address] Care Team Providers Care Ip Architect Name Role Phone Unavailable Primary Care Provider [...]
--- OUTSIDE RECORDS SUMMARY | 2025-02-17 07:37 | XMS_ITS | Clinical Summary ---
Author Organization [employer] Address [address] [place] [address] [address] [place] [address] Care Team Providers Care Solution Professional Name Role Phone Unavailable Primary Care Provider [...] patient's age to complete this topic Insurance [place] [address] ACO
== END 2025-02-17 07:35 | disposition home or self-care (01) ==
LOC: HO.XRAY 07:34
PROVIDERS: PCP Nurse Practitioner Family; Visit Provider Nurse Practitioner Family
DX: M54.42 Lumbago with sciatica, left side (principal); M54.41 Lumbago with sciatica, right side; E66.01 Morbid (severe) obesity due to excess calories; Z68.43 Body mass index [BMI] 50.0-59.9, adult
CPT/HCPCS: 71046; 72100

== ENCOUNTER → 2025-02-17 07:39 | Outpatient (BNV) | payer OTHER, SELFPAY | PROVIDERS: PCP Nurse Practitioner Family; Visit Provider Radiology Diagnostic Radiology | DX: M54.42 Lumbago with sciatica, left side (principal); E66.01 Morbid (severe) obesity due to excess calories | CPT/HCPCS: 71046; 72100 ==

== ENCOUNTER 2025-03-10 07:37 | Outpatient (REF) | payer OTHER, SELFPAY ==
--- OUTSIDE RECORDS SUMMARY | 2025-03-10 07:41 | XMS_ITS | Clinical Summary ---
Author Organization [employer] Address [address] [place] [address] [address] [place] [address] Care Team Providers Care Stoneworking Sander Name Role Phone Unavailable Primary Care Provider [...] patient's age to complete this topic [place] [address] [place] [address] [place] [address]
--- OUTSIDE RECORDS SUMMARY | 2025-03-10 07:41 | XMS_ITS | Clinical Summary ---
Author Organization [facility] ity Address [address] [place] [address] Care Team Providers Care Oracle Soa Developer Name Role Phone Unavailable Primary Care Provider [...] Cervical Cancer Screening: P ap Smear 01/12/2012 HPV Vaccines (1 - 3-dose SCD M series) 2018 Depression Screening 06/09/2024 COVID-19 Vaccine ( - 2023-2 5 season) 2025 Influenza Vaccine (#1) 2025 RSV Immunization Adult Patie nts (1 - 1-dose 75+ series) 2066 HIB [...]
[2025-03-10 08:56] LABS: Cholesterol 209 mg/dL (<200); HDL Cholesterol 45 mg/dL (>40); Triglycerides 96 mg/dL (<150)
== END 2025-03-10 07:38 | disposition home or self-care (01) ==
LOC: HO.LAB 07:37
PROVIDERS: PCP Nurse Practitioner Family; Visit Provider Nurse Practitioner Family
DX: E55.9 Vitamin D deficiency, unspecified (principal); E78.00 Pure hypercholesterolemia, unspecified
CPT/HCPCS: 36415; 80061; 82306

== ENCOUNTER 2025-03-18 12:27 | Outpatient (AMB) | payer OTHER, SELFPAY ==
--- NOTE | 2025-03-18 12:13 | A.OFFPC_ITS ---
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 Required: No Is last menstrual period known: Yes Last menstrual period: 03/18/25 Post menopausal: No Patient : No Allergies No Known Allergies (No Known Allergies*) Allergy (Verified 03/18/25 12:14) Tobacco use date assessed: 03/18/25 Dental Screening Dental Screen Date: 03/18/25 Did you have a dental visit in the last 12 months?: Yes Did you have a dental problem in the last 6 months where you did not have access to dental care?: No Was dental information given to patient?: Patient has dentist HPI HPI Comments History of Present Illness Details 35-year-old female presents for a [facility] visit for review of recent lab results. She offers no complaints and denies acute symptoms at this time. [facility] Medical History MICHOACANO (obstructive sleep apnea) Asthma Gall bladder disease Surgical History History of loop electrical excision procedure (LEEP) Hx of cholecystectomy Family History Maternal Grandfather Cancer Mother Asthma High blood pressure Diabetes Father High blood pressure Diabetes Paternal Grandfather Diabetes Social History Housing: Apartment Alcohol intake: never Patient Tobacco Use Status: Never used Tobacco e-Cigarette/Vaping Use: Never Used Second Hand Smoke Exposure: No Substance Use Type: Marijuana Patient : No service: No Current occupational status: employed 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[place] Current occupational exposures/hazards: No Gender identity: Female Cognitive needs: No Hearing needs: No Vision needs: No Female Reproductive History Menstrual Age of Menarche: 11 Date of last menstrual period: 03/18/25 Questionnaire Thrive Questionnaire Date Thrive assessed: 10/22/24 I am a: Patient What is your living situation today?: I have a steady place to live Within the past 12 months, did the food you bought not last and you didn't have the money to get more?: Never true Within the past 12 months, did you worry whether your food would run out before you got money to buy more?: Never true Do you have trouble paying for medicines?: No Do you have trouble getting transportation to medical appointments?: No Do you have trouble paying your heating and electricity bill?: No Do you have trouble taking care of your child, family member or friend?: No Do you have trouble with day-to-day activities such as bathing, preparing meals, shopping, managing finances, etc.?: No Are you currently unemployed and looking for a job?: No Are you interested in more education?: No Please select the resources that you would like help with: None Currently or been in a relationship where the following occur: No concerns reported THRIVE Score: 0 PURVI-7 AMB Questionnaire PURVI-7 Date PURVI - 7 assessed: 10/29/24 Source: Developed by Drs. Gato Barajas, Tammi Parrish, Arnoldo Singh and colleagues, with an educational betty from [employer]. Review of Systems Const Details: Denies chills, Denies fatigue, Denies fever(s), Denies headache(s) and Denies weakness Cardiac Denies chest pain, Denies claudication, Denies leg edema, Denies lightheadedness, Denies palpitations, Denies dyspnea, Denies dyspnea on exertion, Denies orthopnea and Denies other (Loss of consciousness) Resp Denies cough, Denies excessive phlegm production, Denies dyspnea, Denies dyspnea on exertion, Denies snoring and Denies wheezing Physical exam (Primary Care) Tobacco/Smoking Status: Tobacco use Status Tobacco use date assessed 03/18/25 03/18/25 12:15 Patient Tobacco Use Status Never used Tobacco 03/18/25 12:15 e-Cigarette/Vaping Use Never Used 03/18/25 12:15 Thrive Assessment: Date of Thrive Assessment Date Thrive assessed 10/22/24 03/18/25 12:15 Currently or been in a relationship where the following occur: No concerns reported Const Other: Patient is alert and oriented x3 Coding Level of Care Code Tele Est Pt Level 3 (50464) Diagnoses Vitamin D deficiency E55.9 Hypercholesterolemia E78.00 Time Spent (min) 15 Assessment & Plan Assessment & Plan (1) Vitamin D deficiency: Code(s): E55.9 - Vitamin D deficiency, unspecified Category: Medical Plan: Recent vitamin-D level was normal. Continue current treatment regimen. Follow-up for PATRICIO/CPE in October 2025. Return sooner with symptoms or concerns. Verbalized understanding and agreed with the plan. (2) Hypercholesterolemia: Code(s): E78.00 - Pure hypercholesterolemia, unspecified Category: Medical Plan: Recent total cholesterol and LDL levels are elevated, 209 and 145 respectively; triglycerides and HDL levels are normal. Advised to limit foods high in saturated fat and avoid foods high in trans fat. Routine exercise encouraged. Verbalized understanding and agreed with the plan.
== END 2025-03-18 13:13 | disposition home or self-care (01) ==
LOC: HO.HMCFM 12:27
PROVIDERS: PCP Nurse Practitioner Family; Visit Provider Nurse Practitioner Family
DX: E78.00 Pure hypercholesterolemia, unspecified (principal); E55.9 Vitamin D deficiency, unspecified